=== PATIENT | female | born 1945 | race Caucasian/White ===

== ENCOUNTER → 2016-08-05 | Outpatient (CLI) | payer MEDICARE ==
--- NOTE | 2016-08-05 18:37 | WWHP ---
DATE OF SERVICE: 08/05/2016. CHIEF COMPLAINT: The patient is here for her routine gynecologic exam and mammogram. HPI: This is a 71-year-old G2, P2 with an LMP of 1999. The patient is without gynecologic complaints and she denies any postmenopausal bleeding. PAST MEDICAL HISTORY: Chronic hypertension, osteopenia, arthritis of the knee. MEDICATIONS: 1. Zestril 10 mg daily. 2. Aleve p.r.n. 3. Benadryl p.r.n. ALLERGIES: No known drug allergies. PAST SURGICAL HISTORY: D&C 1997 and colonoscopy in 2010. 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 SOCIAL HISTORY: She denies tobacco and drug use and has 2 to 3 alcoholic drinks per month. She has been since 1990 and watches some of her great grandchildren. She is retired. FAMILY HISTORY: Unremarkable but is limited, since she was adopted. REVIEW OF SYSTEMS: Weight has been stable. She denies respiratory, cardiac, or GI problems. She denies maltreatment or falling. : She denies any significant urinary leakage issues. PHYSICAL EXAM: Blood pressure 165/92. Height 5 feet 4 inches. Weight 175 pounds. Temperature 97.2, pulse 90. This a well-developed, well-nourished white female who is alert and oriented x3 in no acute distress. HEENT is within normal limits. NECK: Supple without mass or thyromegaly. CHEST AND LUNGS: Clear to auscultation. HEART: Regular rate and rhythm. Breasts are without mass or discharge. Axillary exam is negative for adenopathy. BACK: Negative for CVA tenderness. ABDOMEN: Soft, nontender, without palpable masses. PELVIC EXAM: External genitalia reveals mild to moderate atrophy without lesions. Cervix and vagina reveal mild to moderate atrophy without lesions. There is no evidence of prolapse. The uterus is midposition, nongravid size and nontender. There are no palpable adnexal masses or tenderness. Rectovaginal exam is negative for mass or tenderness and is negative for occult blood. EXTREMITIES: Nontender. SKIN: She has multiple moles, some consistent with seborrheic keratosis. IMPRESSION: 1. A 71-year-old menopausal female with normal gynecologic exam. 2. History of osteopenia. 3. Elevated blood pressure with history of chronic hypertension. PLAN: 1. Pap smear was deferred, since she had a normal one last year. 2. Self-breast examination was discussed. 3. Mammogram will be done today. 4. I have recommended that she take her blood pressure on a regular basis and follow up with her primary care advocate for her elevated blood pressures. 5. I have recommended the flu shots in the fall. 6. Osteoporosis prevention was discussed. We will plan on repeating bone density testing in 1 to 2 years. 7. I have recommended that she consider seeing a trimming operator for her multiple moles, including the areas of seborrheic keratosis for regular skin examination. 8. She will return in one year.
--- NOTE | 2016-08-07 12:00 | MM ---
Reason for exam: screening (asymptomatic). Last mammogram was performed 1 year ago. History: Patient is postmenopausal. Physical Findings: A clinical breast exam by your physician is recommended on an annual basis and results should be correlated with mammographic findings. MG 3D Screening Mammo W/Cad Bilateral CC and MLO view(s) were taken. Prior study comparison: July 30, 2015, bilateral MG 3d screening mammo w/cad. July 27, 2014, bilateral MG screening mammo w CAD. July 26, 2013, bilateral digital screening mammo w/CAD. The breast tissue is heterogeneously dense. This may lower the sensitivity of mammography. Multiple moles redemonstrated on the left breast. No significant changes when compared with prior studies. ASSESSMENT: Negative, BI-RAD 1 RECOMMENDATION: Routine screening mammogram of both breasts in 1 year.
== END | disposition home or self-care (01) ==
LOC: WWCWWP 11:06
PROVIDERS: ATTEND Obstetrics & Gynecology
DX: Z12.31 Encounter for screening mammogram for malignant neoplasm of breast (principal)
CPT/HCPCS: 77063; G0202

== ENCOUNTER → 2017-09-22 | Outpatient (CLI) | payer MEDICARE ==
[2017-09-22 09:55] VITALS: BP 154/95; PULSE 77; TEMP 97.4; BMI 31.6
--- NOTE | 2017-09-22 10:23 | P.HPOB ---
History of Present Illness H&P Date: 09/22/17 Chief Complaint: The patient is here for her routine gynecologic exam and mammogram. This is a 72-year-old with an LMP of 1999. The patient is without gynecologic complaints and denies any postmenopausal bleeding. Review of Systems She has gained 9 pounds over the last year. She denies respiratory, cardiac and G.I. problems. She denies maltreatment or problems with falling. : she denies any significant problems with urinary leakage. Past Medical History Past Medical History: Hypertension Additional Past Medical History / Comment(s): Osteopenia and arthritis of the knee. 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 History of Any Multi-Drug Resistant Organisms: None Reported Past Surgical History: No Surgical Hx Reported Additional Past Surgical History / Comment(s): D&C, colonoscopy 2010. Past Psychological History: No Psychological Hx Reported Smoking Status: Never smoker Past Alcohol Use History: Rare (0-1 per month) Past Drug Use History: None Reported Additional History: She has been since 1990 and watches some of her 10 great grandchildren. She is retired. - Past Family History Mother Family Medical History: No Reported History Additional Family Medical History / Comment(s): Family history is very limited since she was adopted. Medications and Allergies Home Medications Medication Instructions Recorded Confirmed Type Lisinopril [Zestril] 10 mg PO BID 09/07/14 09/07/14 History Cetirizine HCl [Zyrtec] mg PO DAILY 09/22/17 History Docusate [Colace] mg PO HS 09/22/17 History Fluticasone Nasal [place] [Flonase spr NASAL PRN 09/22/17 History Nasal [place]] Allergies Allergy/AdvReac Type Severity Reaction Status Date / Time No Known Allergies Allergy Verified 09/07/14 10:56 Exam - Vital Signs Vital signs: Vital Signs Temp Pulse BP 09/22/17 09:51 97.4 F L 77 154/95 Intake and Output 09/21/17 09/22/17 09/22/17 22:59 06:59 14:59 Other: Weight 83.461 kg Height 5'4", BMI 31.6. This is a well-developed well-nourished white female who is alert and oriented times 3 in no acute distress. HEENT: Within normal limits. NECK: Supple without mass or thyromegaly. CHEST AND LUNGS: Clear to auscultation. HEART: Regular rate and rhythm. BREASTS: Are without mass or discharge. There are areas of seborrheic keratosis at the lateral aspect of the left breast which she states she has had for many years and are unchanged for the patient. The largest area measures approximately 2.5 by 3 cm. AXILLARY EXAM: Negative for adenopathy. BACK: Negative for CVA tenderness. ABDOMEN: Soft, nontender, without palpable masses. PELVIC EXAM: Normal external genitalia with mild atrophy. Cervix and vagina appear normal wild atrophy. There is no unusual discharge. There is no evidence of prolapse. The uterus is midposition, nongravid size and nontender. There are no palpable adnexal masses or tenderness. RECTAL EXAM: rectovaginal exam is negative for mass or tenderness and is negative for occult blood. EXTREMITIES: Nontender. IMPRESSION: 1. 72-year-old menopausal female with normal gynecologic exam. 2. History of osteopenia. PLAN: 1. Pap smear was performed. 2. Self breast awareness was discussed. 3. Screening mammogram will be done today. 4. osteoporosis prevention was discussed. Repeat bone density test was recommended for next year. 5. She will return in one year.
--- NOTE | 2017-09-24 10:15 | MM ---
Reason for exam: screening (asymptomatic). Last mammogram was performed 1 year and 2 months ago. History: Patient is postmenopausal. Physical Findings: A clinical breast exam by your physician is recommended on an annual basis and results should be correlated with mammographic findings. MG 3D Screening Mammo W/Cad Bilateral CC and MLO view(s) were taken. Prior study comparison: August 05, 2016, bilateral MG 3d screening mammo w/cad. July 30, 2015, bilateral MG 3d screening mammo w/cad. The breast tissue is heterogeneously dense. This may lower the sensitivity of mammography. No suspicious abnormality. No significant changes when compared with prior studies. ASSESSMENT: Negative, BI-RAD 1 RECOMMENDATION: Routine screening mammogram of both breasts in 1 year.
== END | disposition home or self-care (01) ==
LOC: WWCWWP 09:06
PROVIDERS: ATTEND Obstetrics & Gynecology
DX: Z12.31 Encounter for screening mammogram for malignant neoplasm of breast (principal)
CPT/HCPCS: 77063; 77067

== ENCOUNTER 2018-09-05 11:49 | Emergency (ER) | payer MEDICARE, OTHER ==
[2018-09-05 11:58] VITALS: PULSE 89; RESP 18; TEMP 97.9
--- NOTE | 2018-09-05 13:07 | ED ---
General Adult HPI - General Chief complaint: Skin/Abscess/Foreign Body Stated complaint: Poison Gini rash/chemical burn Time Seen by Provider: 09/05/18 12:53 Source: patient, RN notes reviewed, old records reviewed Mode of arrival: ambulatory Limitations: no limitations - History of Present Illness Initial comments: 73-year-old female presents for reevaluation of left wrist poison gini. Approximately one week ago the patient was clearing out some brush, she did have gloves on she states that there was known poison gini and she had poison gini brushed against the palmar surface of her distal left wrist. She had been treating this with Silvadene. She did have an accidental application of capsaicin cream with subsequent increased erythema and pain. She was seen at urgent care given steroid shot and instructed to continue Silvadene. She is presenting today for reevaluation. She's had some improvement in the erythema. There continues to be some yellow blistering and drainage. No fever chills. No other complaints. - Related Data Home Medications Medication Instructions Recorded Confirmed Lisinopril [Zestril] 10 mg PO BID 09/07/14 09/07/14 Cetirizine HCl [Zyrtec] mg PO DAILY 09/22/17 Docusate [Colace] mg PO HS 09/22/17 Fluticasone Nasal [place] [Flonase spr NASAL PRN 09/22/17 Nasal [place]] Previous Rx's Medication Instructions Recorded methylPREDNISolone Dose Pack 4 mg PO DIRECTED #21 package 09/05/18 [Medrol Dose Pack] Allergies Allergy/AdvReac Type Severity Reaction Status Date / Time No Known Allergies Allergy Verified 09/05/18 11:54 Review of Systems ROS Statement: Those systems with pertinent positive or pertinent negative responses have been documented in the HPI. ROS Other: All systems not noted in ROS Statement are negative. Past Medical History Past Medical History: Hypertension Additional Past Medical History / Comment(s): Osteopenia and arthritis of the neil velazquez. 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 History of Any Multi-Drug Resistant Organisms: None Reported Past Surgical History: No Surgical Hx Reported Additional Past Surgical History / Comment(s): D&C, colonoscopy 2010. Past Psychological History: No Psychological Hx Reported Smoking Status: Never smoker Past Alcohol Use History: Rare Past Drug Use History: None Reported - Past Family History Mother Family Medical History: No Reported History Additional Family Medical History / Comment(s): Family history is very limited since she was adopted. General Exam Limitations: no limitations General appearance: alert, in no apparent distress Head exam: Present: atraumatic, normocephalic Eye exam: Present: normal appearance, PERRL ENT exam: Present: normal exam Neck exam: Present: normal inspection Respiratory exam: Present: normal lung sounds bilaterally. Absent: respiratory distress Cardiovascular Exam: Present: regular rate, normal rhythm GI/Abdominal exam: Present: soft. Absent: distended, tenderness, guarding Skin exam: Present: vesicles (Erythema, vesicles on the palmar surface of the distal left wrist. Measuring approximately 9 cm x 5 cm. No signs of secondary infection), other Course Vital Signs 09/05/18 11:54 Temperature 97.9 F Pulse Rate 89 Respiratory 18 Rate Blood Pressure 195/92 O2 Sat by Pulse 99 Oximetry Medical Decision Making - Medical Decision Making 73-year-old female presenting for reevaluation of poison gini. Will continue to apply antibiotic dressing for secondary infection. Patient is managing this poison gini rash at home with symptomatic treatment including topical steroids, oral antihistamines, and washing twice daily. She will continue this treatment she will be prescribed an oral steroid. Disposition Clinical Impression: Contact dermatitis, Poison gini dermatitis Disposition: HOME SELF-CARE Condition: Good Instructions (If sedation given, give patient instructions): Poison Gini (ED) Prescriptions: methylPREDNISolone Dose Pack [Medrol Dose Pack] 4 mg PO DIRECTED #21 package Is patient prescribed a controlled substance at d/c from ED?: No Referrals: Hilario Vazquez MD [Primary Care Provider] - 1-2 days Time of Disposition: 13:07
[2018-09-05 13:32] VITALS: BP 156/95
== END 2018-09-05 13:33 | disposition home or self-care (01) ==
LOC: EC 11:49
DX: L23.7 Allergic contact dermatitis due to plants, except food (principal); I10 Essential (primary) hypertension; Z79.899 Other long term (current) drug therapy
CPT/HCPCS: 99283

== ENCOUNTER → 2018-11-09 | Outpatient (CLI) | payer MEDICARE, OTHER ==
[2018-11-09 11:39] VITALS: BP 153/88; PULSE 100; RESP 18; TEMP 98.2; BMI 32.2
--- NOTE | 2018-11-09 12:21 | P.HPOB ---
History of Present Illness H&P Date: 11/09/18 Chief Complaint: The patient is here for her routine gynecologic exam and ma mmogram. This is a 73 year old with an LMP of 1999. The patient is without gynecologic complaints and denies any postmenopausal bleeding. She is sexually active. Review of Systems She has gained about 5 pounds over the last year. She denies respiratory, cardiac and G.I. problems. She denies maltreatment or problems with falling. : she denies any significant problems with urinary leakage. Past Medical History Past Medical History: Hypertension Additional Past Medical History / Comment(s): Osteopenia. 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 She did use HRT around at the time of her menopausal change. History of Any Multi-Drug Resistant Organisms: None Reported Past Surgical History: No Surgical Hx Reported Additional Past Surgical History / Comment(s): D&C, colonoscopy 2010. Past Psychological History: No Psychological Hx Reported Smoking Status: Never smoker Past Alcohol Use History: Rare Past Drug Use History: None Reported Additional History: She has been since 1990 and is sexually active. She has 10 great grandchildren and watches some of them. She is retired. - Past Family History Mother Family Medical History: No Reported History Additional Family Medical History / Comment(s): Family history is very limited since she was adopted. Medications and Allergies Home Medications Medication Instructions Recorded Confirmed Type Lisinopril [Zestril] 10 mg PO BID 09/07/14 11/09/18 History Cetirizine HCl [Zyrtec] 10 mg PO DAILY 09/22/17 11/09/18 History Docusate [Colace] 100 mg PO HS 09/22/17 11/09/18 History Fluticasone Nasal [place] [Flonase 1 spr NASAL DAILY PRN 09/22/17 11/09/18 History Nasal [place]] Allergies Allergy/AdvReac Type Severity Reaction Status Date / Time acyclovir [From Zovirax] Allergy Rash/Hives Unverified 11/09/18 11:41 Exam Vital Signs Temp Pulse Resp BP Pulse Ox 11/09/18 11:32 98.2 F 100 18 153/88 100 Intake and Output 11/08/18 11/09/18 11/09/18 22:59 06:59 14:59 Other: Weight 85.275 kg Height 5'4", weight 188 pounds, BMI 32.3. This is a well-developed well-nourished white female who is alert and oriented times 3 in no acute distress. HEENT: Within normal limits. NECK: Supple without mass or thyromegaly. CHEST AND LUNGS: Clear to auscultation. HEART: Regular rate and rhythm. BREASTS: Are without mass or discharge. AXILLARY EXAM: Negative for adenopathy. BACK: Negative for CVA tenderness. ABDOMEN: Soft, nontender, without palpable masses. PELVIC EXAM: Normal external genitalia with mild atrophy. Cervix and vagina appear normal with mild atrophy. There is no unusual discharge. There is no evidence of prolapse. The uterus is midposition, nongravid size and nontender. There are no palpable adnexal masses or tenderness. RECTAL EXAM: rectovaginal exam is negative for mass or tenderness and is negative for occult blood. EXTREMITIES: Nontender. IMPRESSION: 1. 73-year-old menopausal female with normal gynecologic exam. 2. History of osteopenia. PLAN: 1. Pap smears have been discontinued. She is greater than 65 years of age and has had adequate screening with no history of cervical dysplasia. 2. Self breast awareness was discussed with the patient. 3. Screening mammogram will be done today. 4. Osteoporosis prevention was discussed. I have stressed the importance of adequate calcium, vitamin D and regular exercise. Recommended amounts of calcium and vitamin D were also discussed. Bone density testing will be done to day. 5. She has not gotten flu shots during the past 2 years. I recommended that she reconsider this and we have discussed reasons why this is important. 6. The patient was advised to return in 1-2 years for her well woman examination.
--- NOTE | 2018-11-09 15:08 | BD ---
EXAMINATION TYPE: Axial Bone Density DATE OF EXAM: 11/09/2018 COMPARISON: NONE CLINICAL HISTORY: Z 78.0 Height: 5 FT 4 IN Weight: 188 FRAX RISK QUESTIONS: RISK FACTORS HISTORY OF: Active: YES Postmenopausal woman: AGE 50/51 Take estrogen and/or progesterone medications: TOOK FOR ABOUT TWO YEARS NO LONGER MEDICATIONS: Additional Medications: ZESTERIL FOR BLOOD PRESSURE Additional History: EXAM MEASUREMENTS: Bone mineral densitometry was performed using the [employer] System. Bone mineral density as measured about the Lumbar spine is: ----- L1-L4(G/cm2): 1.130 T Score Values are as follows: ----- L2: -0.5 ----- L3: -0.4 ----- L4: -0.7 ----- L1-L4: -0.4 Bone mineral density has: INCREASED 1.3 % since study of: 2015 Bone mineral density about the R hip (g/cm2): 0.826 Bone mineral density about the L hip (g/cm2): 0.810 T Score values are as follows: -----R Neck: -1.5 -----L Neck: -1.6 -----R Total: -0.9 -----L Total: -1.0 Bone mineral density has: INCREASED 0.3 % since study of: 2015 IMPRESSION: Osteopenia (T Score between -2.5 and -1). There is slightly increased risk of fracture and the patient may be considered for treatment. Re-Screen 2-5 years. NOTE: T-SCORE=SD OF THE YOUNG ADULT MEAN.
--- NOTE | 2018-11-10 15:21 | MM ---
Reason for exam: screening (asymptomatic). Last mammogram was performed 1 year and 2 months ago. History: Patient is postmenopausal. Physical Findings: A clinical breast exam by your physician is recommended on an annual basis and results should be correlated with mammographic findings. MG 3D Screening Mammo W/Cad Bilateral CC and MLO view(s) were taken. Prior study comparison: September 22, 2017, bilateral MG 3d screening mammo w/cad. August 05, 2016, bilateral MG 3d screening mammo w/cad. The breast tissue is heterogeneously dense. This may lower the sensitivity of mammography. No significant changes when compared with prior studies. ASSESSMENT: Benign, BI-RAD 2 RECOMMENDATION: Routine screening mammogram of both breasts in 1 year.
--- NOTE | 2018-11-16 10:15 | P.PN ---
Progress Note - Text Progress Note Date: 11/16/18 OUTPATIENT FOLLOW-UP NOTE TEST(S)/RESULTS: test results from 11/09/2018 include bone density testing showing stable osteopenia and benign mammogram. METHOD OF NOTIFICATION: a message with these results was left on the patient's voicemail. PATIENT COMMENTS: DIAGNOSIS: benign mammogram and stable osteopenia. DISCUSSION: I have also stressed the importance of continuing to get adequate calcium, vitamin D, and regular exercise. PLAN: repeat bone density testing in 2 to 3 years. The patient was advised to return in 1-2 years for her well woman examination.
== END | disposition home or self-care (01) ==
LOC: WWCWWP 11:12
PROVIDERS: ATTEND Obstetrics & Gynecology
DX: Z12.31 Encounter for screening mammogram for malignant neoplasm of breast (principal); M85.80 Other specified disorders of bone density and structure, unspecified site; Z78.0 Asymptomatic menopausal state
CPT/HCPCS: 77063; 77067; 77080

== ENCOUNTER → 2020-03-18 | Outpatient (CLI) | payer MEDICARE, OTHER | END | disposition home or self-care (01) | LOC: LABPAT 10:11 | PROVIDERS: ATTEND Student in an Organized Health Care Education/Training Program | DX: U07.1 COVID-19 (principal) ==

== ENCOUNTER 2020-03-22 13:54 | Day surgery (SDC) | payer MEDICARE, OTHER ==
[2020-03-20 14:49] VITALS: BMI 29.2
[~2020-03-22 13:54] MED LIST: LACTATED RINGERS 1,000 ML IV SCH
[2020-03-22 14:14] VITALS: TEMP 97.8
[2020-03-22] MEDS ORDERED: LIDOCAINE 1% (10MG/ML) FOR IV START INTRADERMA ONE (14:15)
[2020-03-22] MEDS ORDERED: LACTATED RINGERS 1,000 ML IV ONE (14:15)
[2020-03-22] MEDS ORDERED: LIDOCAINE 1% INJ 10MG/ML (20 ML MDV) ONE (17:49)
[2020-03-22] MEDS ORDERED: PROPOFOL 10 MG/ML 20 ML VIAL IV ONE (17:49)
[2020-03-22 18:20] VITALS: RESP 17
[2020-03-22 18:30] VITALS: BP 107/70; PULSE 77
--- NOTE | 2020-03-22 19:38 | P.OP ---
Date of Procedure: 03/22/20 Preoperative Diagnosis: GERD, screening Postoperative Diagnosis: Esophagitis, ascending colon polyp Procedure(s) Performed: EGD with biopsy and colonoacopy with hot snare polypectomy Anesthesia: MAC Surgeon: Peter Mchugh Estimated Blood Loss (ml): 0 Condition: stable Disposition: same day Description of Procedure: Patient brought to endo, underwent sedation, scope passed from mouth to stomach, first and second portion of duodenum were examened and chronic inflammation noted, biopsy taken. Withdrawn to stomach and antral biopsy taken to rule out h pylori. Retroflexed to visualize all serna of stomach no abdnormalities noted. No significant hiatal hernia noted. Withdrawn to GE junction where esophagitis was noted. Multiple biopsies taken to rule out barretts. Scope withdrawn through esophagus no other abdnormalities noted. Rectal exam performed no gross abdnormalities noted, scope passed fro rectum to cecum with ease and slowly withdrawn visualizing all serna of colon on the way out. there was one pedunctulated small polyp in the ascending colon removed via hot snare polypectomy. There were also several small inflamatory lesions in the rectum and cold biopsy was taken of these. No other abdnormalities seen. Patient tolerated procedure well. Continue omeprazole follow up biopsies and repeat colonoscopy in 5 years Plan - Discharge Summary Discharge Rx Participant: No New Discharge Prescriptions: No Action lisinopriL [Zestril] 10 mg PO BID Fluticasone Nasal [place] [Flonase Nasal [place]] 1 spr NASAL DAILY PRN PRN Reason: Allergy Symptoms Docusate [Colace] 100 mg PO HS Loratadine [Claritin] 10 mg PO DAILY Omeprazole [PriLOSEC] 20 mg PO AC-BRKFST Montelukast [Singulair] 10 mg PO HS Multivit-Min/FA/Lycopen/Lutein [Centrum Silver Tablet] 1 each PO DAILY Discharge Medication List lisinopriL [Zestril] 10 mg PO BID 09/07/14 [History] Docusate [Colace] 100 mg PO HS 09/22/17 [History] Fluticasone Nasal [place] [Flonase Nasal [place]] 1 spr NASAL DAILY PRN 09/22/17 [H istory] Loratadine [Claritin] 10 mg PO DAILY 03/20/20 [History] Montelukast [Singulair] 10 mg PO HS 03/20/20 [History] Multivit-Min/FA/Lycopen/Lutein [Centrum Silver Tablet] 1 each PO DAILY 03/20/20 [History] Omeprazole [PriLOSEC] 20 mg PO AC-BRKFST 03/20/20 [History] Follow up Appointment(s)/Referral(s): Peter Mchugh DO [Doctor of Osteopathic Medicine] - As Needed Patient Instructions/Handouts: *Surgery [facility] - (Anesthesia) Endoscopy Discharge Instructions, Colonoscopy (DC), Upper Endoscopy (DC) Activity/Diet/Wound Care/Special Instructions: REST TODAY, ENCOURAGE FLUIDS AT HOME Discharge Disposition: HOME SELF-CARE
== END 2020-03-22 18:47 | disposition home or self-care (01) ==
LOC: ORWHC2ENDO 13:54
PROVIDERS: ATTEND Student in an Organized Health Care Education/Training Program
DX: Z12.11 Encounter for screening for malignant neoplasm of colon (principal); D12.2 Benign neoplasm of ascending colon; K63.5 Polyp of colon; K62.89 Other specified diseases of anus and rectum; K21.00 Gastro-esophageal reflux disease with esophagitis, without bleeding; K29.80 Duodenitis without bleeding; K64.9 Unspecified hemorrhoids; E78.5 Hyperlipidemia, unspecified; M81.0 Age-related osteoporosis without current pathological fracture; I10 Essential (primary) hypertension; Z88.8 Allergy status to other drugs, medicaments and biological substances; Z79.899 Other long term (current) drug therapy
CPT/HCPCS: 45385; 45380; 43239; 88305; J2001; J2704

== ENCOUNTER → 2020-09-17 | Outpatient (CLI) | payer MEDICARE, OTHER ==
[2020-09-17 09:32] VITALS: BP 150/73; PULSE 79; RESP 16; TEMP 98
--- NOTE | 2020-09-17 10:10 | P.HPOB ---
History of Present Illness H&P Date: 09/17/20 Chief Complaint: The patient is here for her routine gynecologic exam and ma mmogram. This is a 75-year-old with an LMP of 1999. The patient is without gynecologic complaints. She is infrequently sexually active. Review of Systems She has lost about 28 pounds over the past 2 years. She states this has been because of some digestive issues related to the gastric reflux. She denies respiratory, cardiac and G.I. problems. She denies maltreatment or problems with falling. : she denies any significant problems with urinary leakage. Past Medical History Past Medical History: GERD/Reflux, Hypertension Additional Past Medical History / Comment(s): Osteopenia. 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 She did use HRT around at the time of her menopausal change. History of Any Multi-Drug Resistant Organisms: None Reported Past Surgical History: No Surgical Hx Reported Additional Past Surgical History / Comment(s): D&C, colonoscopy 2019 (next after 7yr), upper endoscopy 2019. Past Anesthesia/Blood Transfusion Reactions: No Reported Reaction, Motion Sickness Past Psychological History: No Psychological Hx Reported Smoking Status: Never smoker Past Alcohol Use History: Rare (Some years 0 drinks) Past Drug Use History: None Reported Additional History: She has been since 1990 and is infrequently sexually active. She has 10 great-grandchildren and watches some of them. She is retired. - Past Family History Mother Family Medical History: No Reported History Additional Family Medical History / Comment(s): Family history is very limited since she was adopted. Medications and Allergies Home Medications Medication Instructions Recorded Confirmed Type lisinopriL [Zestril] 10 mg PO BID 09/07/14 09/17/20 History Docusate [Colace] 100 mg PO HS 09/22/17 09/17/20 History Loratadine [Claritin] 10 mg PO DAILY 03/20/20 09/17/20 History Montelukast [Singulair] 10 mg PO HS 03/20/20 09/17/20 History Omeprazole [PriLOSEC] 20 mg PO AC-BRKFST 03/20/20 09/17/20 History Allergies Allergy/AdvReac Type Severity Reaction Status Date / Time acyclovir [From Zovirax] Allergy Rash/Hives Unverified 09/17/20 09:23 Exam Vital Signs Temp Pulse Resp BP Pulse Ox 09/17/20 09:25 98.0 F 79 16 150/73 98 Intake and Output 09/16/20 09/17/20 09/17/20 22:59 06:59 14:59 Other: Weight 72.575 kg Height 5 feet 3-1/2 inches, weight 160 pounds, BMI 27.9. This is a well-developed well-nourished white female who is alert and oriented times 3 in no acute distress. HEENT: Within normal limits. NECK: Supple without mass or thyromegaly. CHEST AND LUNGS: Clear to auscultation. HEART: Regular rate and rhythm. BREASTS: Are without mass or discharge. There is a benign-appearing mole measuring 5 x 3 mm on the left lateral breast. She states it has been there for many years without change. AXILLARY EXAM: Negative for adenopathy. BACK: Negative for CVA tenderness. ABDOMEN: Soft, nontender, without palpable masses. PELVIC EXAM: Normal external genitalia with mild atrophy. Cervix and vagina appear normal with mild atrophy. There is no unusual discharge. There is no ev idence of prolapse. The uterus is midposition, nongravid size and nontender. There are no palpable adnexal masses or tenderness. RECTAL EXAM: Rectovaginal exam is negative for mass or tenderness and is negative for occult blood. EXTREMITIES: Nontender. IMPRESSION: 1. 75-year-old menopausal female with normal gynecologic exam. 2. History of osteopenia PLAN: 1. Pap smears have been discontinued. 2. Self breast awareness was discussed with the patient. 3. Screening mammogram will be done today. 4. Osteoporosis prevention was discussed. I have stressed the importance of adequate calcium, vitamin D and regular exercise. Recommended amounts of calcium and vitamin D were also discussed. I have recommended a bone density test after October of this year. The order slip was given to the patient for this. 5. She did complete her Covid vaccination series and did receive a flu shot last fall. 6. She was advised to return in one year for her annual well woman exam.
--- NOTE | 2020-09-18 13:41 | MM ---
Reason for exam: screening (asymptomatic). Last mammogram was performed 1 year and 10 months ago. History: Patient is postmenopausal. Took other hormone beginning at age 51. Physical Findings: A clinical breast exam by your physician is recommended on an annual basis and results should be correlated with mammographic findings. MG 3D Screening Mammo W/Cad Bilateral CC and MLO view(s) were taken. Prior study comparison: November 09, 2018, bilateral MG 3d screening mammo w/cad. September 22, 2017, bilateral MG 3d screening mammo w/cad. The breast tissue is heterogeneously dense. This may lower the sensitivity of mammography. There are benign appearing round calcifications bilaterally. There is no discrete abnormality. ASSESSMENT: Benign, BI-RAD 2 RECOMMENDATION: Routine screening mammogram of both breasts in 1 year.
== END ==
LOC: WWCWWP 09:10
PROVIDERS: ATTEND Obstetrics & Gynecology
DX: Z12.31 Encounter for screening mammogram for malignant neoplasm of breast (principal); Z01.419 Encounter for gynecological examination (general) (routine) without abnormal findings; K21.9 Gastro-esophageal reflux disease without esophagitis; I10 Essential (primary) hypertension; Z87.39 Personal history of other diseases of the musculoskeletal system and connective tissue; Z79.899 Other long term (current) drug therapy; Z88.8 Allergy status to other drugs, medicaments and biological substances
CPT/HCPCS: 77063; 77067

== ENCOUNTER → 2021-12-19 | Outpatient (CLI) | payer MEDICARE, OTHER ==
[2021-12-19 10:16] LABS: African American GFR (CKD) >90 (>60 ml/min/1.73 sqM); Blood Urea Nitrogen 19 mg/dL (7-17); Non-African American GFR(CKD) 86 (>60 ml/min/1.73 sqM)
--- NOTE | 2021-12-19 15:27 | CT ---
EXAMINATION TYPE: CT urogram wo/w con DATE OF EXAM: 12/19/2021 COMPARISON: None HISTORY: 76 year-old female 3 1.0, Gross hematuria TECHNIQUE: Contiguous axial scanning of the abdomen and pelvis performed without and with IV Contrast , patient injected with 100 mL of Isovue 370. Delayed images through the kidneys and bladder were obt ained. Coronal/sagittal reconstructions performed. 3-D reconstructions generated on a dedicated [employer] workstation. CT DLP: 956.6 mGycm Automated exposure control for dose reduction was used. FINDINGS: Heart normal size pericardial effusion. Lung bases clear without pleural effusion. Small hiatal hernia. 1.1 cm cyst lateral right kidney. Possible porcelain gallbladder versus numerous underlying stones. There is some soft tissue thickenin g noted at the fundus of the gallbladder measuring up to 2.5 cm. Surgical evaluation recommended. Non calcified gallstones are possible as is a mass. No abnormal gallbladder distention. Portal venous sys tem is patent. No biliary ductal dilatation. Adrenal glands, spleen, pancreas within normal limits. Large 7.4 cm exophytic cyst lower pole left kidney. Additional tiny 8 mm cortical cyst on the left. Kidneys show no nephrolithiasis. Bilateral extrarenal pelves are noted. No suspicious renal mass. The distal third aspect of one of th e ureters is not opacified in either joints with the other ureter continues not opacified. No dilated small bowel, free fluid, or free air. Normal appendix. Mild overall stool burden. Bladder is urine distended but shows abnormal mural based soft tissue mass up to 4.8 cm thick but ext ending along the right lateral half of the bladder filling the right bladder floor and extending johnnie g the posterior wall to the dome of the bladder. Overall extent demonstrated well on sagittal series 9 image 94. The mass on series 4 axial image 109 results in distortion of the bladder wall and outwar d protuberance. Additional small mural nodules are present along the posterior half of the left bladder wall measurin g up to 7 mm Tiny pelvic fluid was. Uterus anteverted. Left ovary visualized. Right ovary not clearly delineated. No abnormal fluid collection in the pelvis or pelvic lymphadenopathy. Degenerative dextroconvex curvature centered along the upper lumbar spine. No osseous destructive pro cess seen. IMPRESSION: 1. EXTENSIVE UROTHELIAL NEOPLASM ALONG THE RIGHT HALF OF THE BLADDER EXTENDING FROM THE FLOOR UP TO T HE DOME OF THE BLADDER MEASURING UP TO 4.8 CM THICK. MULTIPLE SMALLER NEOPLASTIC NODULES ARE PRESENT ALONG THE LEFT POSTERIOR HALF OF THE BLADDER WALL MEASURING UP TO 7 MM. 2. DUPLEX LEFT RENAL COLLECTING SYSTEM. 2 URETERS COURSE INTO THE PELVIS. THE DISTAL THIRD ASPECT OF ONE OF THE LEFT-SIDED URETERS IS NOT SEEN AND COULD EITHER BE NONOPACIFIED OR COULD HAVE JOINED THE O THER URETER. 3. OTHERWISE, NO ADDITIONAL LESION SEEN ALONG EITHER OPACIFIED URETER. THERE IS A LARGE EXOPHYTIC 7.4 CM LEFT LOWER POLE RENAL CYST. 4. POSSIBLE PORCELAIN GALLBLADDER. SOME SOFT TISSUE THICKENING AT THE FUNDUS OF THE GALLBLADDER MEASU RES 2.5 CM AND COULD REPRESENT NONCALCIFIED GALLSTONES OR A GALLBLADDER MASS. RECOMMEND SURGICAL EVAL UATION.
== END | disposition home or self-care (01) ==
LOC: RADCTMAIN 09:18
PROVIDERS: ATTEND Urology
DX: C67.9 Malignant neoplasm of bladder, unspecified (principal); N28.1 Cyst of kidney, acquired; K82.8 Other specified diseases of gallbladder
CPT/HCPCS: 82565; 84520; 74178; 36415; 74400; Q9967

== ENCOUNTER → 2022-01-12 | Outpatient (CLI) | payer MEDICARE, OTHER ==
[2022-01-12 17:54] LABS: Basophils # (A) 0.03 X 10*3/uL (0.00-0.10); Basophils % (A) 0.4 %; Eosinophils # (A) 0.05 X 10*3/uL (0.04-0.35); Eosinophils % (A) 0.7 %; HCT 46.8 % (37.2-46.3); HGB 15.4 g/dL (12.0-15.0); Immature Grans, Automated 0.4 %; Lymphocytes # (A) 1.42 X 10*3/uL (0.90-5.00); Lymphocytes % (A) 18.8 %; MCH 30.3 pg (27.0-32.0); MCHC 32.9 g/dL (32.0-37.0); MCV 91.9 fL (80.0-97.0); Mean Platelet Volume 10.7 fL (9.5-12.2); Monocytes # (A) 0.46 X 10*3/uL (0.20-1.00); Monocytes % (A) 6.1 %; NRBC Per 100 WBC 0 /100 WBCS (0.0-0.0); Neutrophils # (A) 5.57 X 10*3/uL (1.80-7.70); Neutrophils % (A) 73.6 %; Platelet Count 226 X 10*3/uL (140-440); RBC 5.09 X 10*6/uL (4.10-5.20); RDW 12.3 % (11.5-14.5); WBC 7.56 X 10*3/uL (4.50-10.00)
[2022-01-12 18:04] LABS: African American GFR (CKD) 86.2 (60.0-200.0); Albumin 4.6 g/dL (3.8-4.9); Albumin/Globulin Ratio 1.94 (1.60-3.17); Anion Gap 10.7 mmol/L (10.00-18.00); BUN/Creat Ratio 24.74 Ratio (12.00-20.00); Blood Urea Nitrogen 19.3 mg/dL (9.0-27.0); Calcium 10.3 mg/dL (8.7-10.3); Carbon Dioxide 26.4 mmol/L (20.0-27.5); Globulin 2.4 g/dL (1.6-3.3); Non-African American GFR(CKD) 74.4 (60.0-200.0); Potassium 4.8 mmol/L (3.5-5.5); Total Bilirubin 0.5 mg/dL (0.30-1.20); Total Protein 6.9 g/dL (6.2-8.2)
[2022-01-12 18:31] LABS: Appearance,Urine Cloudy (Clear); Bilirubin,Urine Negative (Negative); Blood,Urine Large (Negative); Color,Urine Yellow (Yellow); Ketones,Urine Negative (Negative); Nitrite,Urine Negative (Negative); Specific Gravity,Urine 1.008 (1.001-1.030); Urobilinogen,Urine 0.2 (0.2,1.0)
[2022-01-12 20:33] LABS: Bacteria,Urine Trace /HPF (None Seen)
== END | disposition home or self-care (01) ==
LOC: LABPAT 11:14
PROVIDERS: ATTEND Urology
DX: Z01.812 Encounter for preprocedural laboratory examination (principal); N20.0 Calculus of kidney; R31.29 Other microscopic hematuria
CPT/HCPCS: 80053; 81001; 85025; 87086

== ENCOUNTER 2022-01-21 08:27 | Day surgery (SDC) | payer MEDICARE, OTHER ==
[2022-01-20 11:47] VITALS: BMI 28.3
--- NOTE | 2022-01-20 20:28 | P.GSHP ---
History of Present Illness H&P Date: 01/20/22 76 yo female with gross hematuria. Ct scan and cystocopy identified a large bladder tumor on the left bladder wall as well as circumferentially around the bladder neck. She comes for a turbt - Constitutional Constitutional: Denies chills, Denies fever - EENT Eyes: denies blurred vision, denies pain Ears, nose, mouth and throat: Denies headache, Denies sore throat - Cardiovascular Cardiovascular: Denies chest pain, Denies shortness of breath - Respiratory Respiratory: Denies cough, Denies 7 - Gastrointestinal Gastrointestinal: Denies abdominal pain, Denies diarrhea, Denies nausea, Denies vomiting - Genitourinary (Female) Genitourinary: Denies dysuria, Denies hematuria - Genitourinary (Male) Genitourinary: Denies dysuria, Denies hematuria - Musculoskeletal Musculoskeletal: Denies myalgias - Integumentary Integumentary: Denies pruritus, Denies rash - Neurological Neurological: Denies numbness, Denies weakness - Psychiatric Psychiatric: Denies anxiety, Denies depression - Endocrine Endocrine: Denies fatigue, Denies weight change Past Medical History Past Medical History: Cancer, Eye Disorder, GERD/Reflux, Hypertension, Skin Disorder Additional Past Medical History / Comment(s): Current bladder cancer. Seasonal allergies. Osteopenia. Ocular hypertension. Rosacea. History of Any Multi-Drug Resistant Organisms: None Reported Past Surgical History: Tubal Ligation Additional Past Surgical History / Comment(s): D&C, colonoscopy, upper endoscopy. Past Anesthesia/Blood Transfusion Reactions: No Reported Reaction, Motion Sickness Additional Past Anesthesia/Blood Transfusion Reaction / Comment(s): Pt adopted, family hx unknown. Past Psychological History: No Psychological Hx Reported Smoking Status: Never smoker Past Alcohol Use History: Rare Additional Past Alcohol Use History / Comment(s): No alcohol in 4-5 years. Past Drug Use History: None Reported - Past Family History Mother History Unknown: Yes Family Medical History: Unable to Obtain Additional Family Medical History / Comment(s): Family history unknown, patient adopted. Medications and Allergies Home Medications Medication Instructions Recorded Confirmed Type lisinopriL [Zestril] 10 mg PO BID 09/07/14 01/20/22 History Montelukast [Singulair] 10 mg PO HS 03/20/20 01/20/22 History Omeprazole [PriLOSEC] 20 mg PO AC-SUPPER 03/20/20 01/20/22 History Doxycycline [Vibramycin] 100 mg PO DAILY 01/20/22 01/20/22 History Hydrocortisone Cream 1 applic TOPICAL HS 01/20/22 01/20/22 History [Hydrocortisone 2.5% Cream] Latanoprost/Pf [Latanoprost 0.005% 1 drop BOTH EYES HS 01/20/22 01/20/22 History Eye Drop] metroNIDAZOLE 0.75% CREAM 1 applic TOPICAL QAM 01/20/22 01/20/22 History [Metrocream 0.75%] Allergies Allergy/AdvReac Type Severity Reaction Status Date / Time No Known Allergies Allergy Verified 01/20/22 11:32 Surgical - Exam - General well developed, well nourished, no distress - Eyes normal ocular movement, no icteric - ENT no hearing loss, no congestion - Neck no masses, trachea midline - Respiratory normal respiratory effort, clear to auscultation - Abdomen Abdomen: soft, non tender, no guarding, no rigid, no rebound - Integumentary no rash, no abnormal pigmentation - Neurologic no disoriented, no combative - Psychiatric oriented to time, oriented to person, oriented to place, speech is normal, memory intact Results - Imaging CT scan - abdomen: report reviewed, image reviewed CT scan - pelvis: report reviewed, image reviewed Assessment and Plan Assessment: Impression: bladder cancer, large Plan: turbt large
[~2022-01-21 08:27] MED LIST changes: +HYDROmorphone 0.5 MG/0.5 ML SYRINGE IVP PRN; -LACTATED RINGERS 1,000 ML IV SCH; +LIDOCAINE 1% (10MG/ML) FOR IV START INTRADERMA PRN; +MIDAZOLAM 2 MG/2 ML VIAL IV PRN
[2022-01-21] MEDS: LACTATED RINGERS 1,000 ML IV SCH ×2 (09:33→10:30)
--- NOTE | 2022-01-21 09:35 | XR ---
KUB HISTORY: Calculus, N 20.0 Frontal KUB correlated to CT 12/19/2021 Linear densities in the right upper quadrant likely corresponding to gallbladder wall calcification a s noted on prior CT consistent with porcelain gallbladder. No evident renal calculus. Overlying bowel gas may obscure detail. Vascular calcifications are present within the pelvis. There is a scoliotic curvature to the spine, degenerative disc changes are present. No evident pneumoperitoneum or bowel o bstruction. IMPRESSION: Possible porcelain gallbladder. Additional findings above.
[2022-01-21] MEDS: ONDANSETRON 4 MG/2 ML VIAL IVP ONE ×3 (09:37→16:38)
[2022-01-21] MEDS: DEXAMETHASONE SOD PHOSPHATE 4 MG/ML 1 ML VIAL IV ONE ×2 (09:37→16:38)
[2022-01-21] MEDS ORDERED: NEOSTIGMINE 1 MG/ML 10 ML VIAL ONE (10:27)
[2022-01-21] MEDS ORDERED: GLYCOPYRROLATE 0.2 MG/ML 2 ML VIAL ONE (10:27)
[2022-01-21] MEDS ORDERED: ePHEDrine 50 MG/ML 1 ML VIAL ONE (10:27)
[2022-01-21] MEDS ORDERED: LIDOCAINE 2% INJ 20 MG/ML (2 ML VIAL) ONE (10:27)
[2022-01-21] MEDS ORDERED: PHENYLEPHRINE-0.9% NACL SYG 1,000 MCG/10 ML SYRINGE ONE (10:27)
[2022-01-21] MEDS ORDERED: fentaNYL (PF) 50 MCG/ML 2 ML AMP ONE (10:27)
[2022-01-21] MEDS ORDERED: ROCURONIUM 10 MG/ML (5 ML VIAL) IV ONE (10:27)
[2022-01-21] MEDS ORDERED: SUCCINYLCHOLINE CHLORIDE 200 MG/10 ML VIAL IV ONE (10:27)
[2022-01-21] MEDS ORDERED: PROPOFOL 10 MG/ML 20 ML VIAL IV ONE (10:27)
[2022-01-21] MEDS ORDERED: LACTATED RINGERS 1,000 ML IV ONE (11:30)
[2022-01-21] MEDS ORDERED: HYDROcodone/APAP 5-325MG 1 EACH TAB PO PRN (13:05)
--- NOTE | 2022-01-21 13:11 | P.OP ---
Date of Procedure: 01/21/22 Preoperative Diagnosis: Bladder tumor large Postoperative Diagnosis: Same Procedure(s) Performed: Cystoscopy, transurethral resection large, incomplete, open cystostomy with removal of remaining tumor and control bleeding, placement of a JOHANN drain Anesthesia: JOSELINE Surgeon: Antony Peters Estimated Blood Loss (ml): 250 Pathology: other (Her tumor) Condition: stable Disposition: PACU Indications for Procedure: The patient is 76. She gross hematuria. Computed tomography scan identified a large tumor in the right lateral wall and posterior bladder wall. This was confirmed endoscopically. She comes for transurethral resection of this tumor there is no upper tract or metastatic disease. Patient brought operating suite given general anesthesia placed lithotomy position. Her drape. I introduced the 25-Nigerien sheath and Foroblique lens into the bladder. With the bipolar resecting loop and the superior loop I began to resect the tumor. The tumor is very extensive and larger than I identified in the office. Extends from across the midline to the left posterior lateral bladder wall all the way up the right posterior lateral wall up to the anterior bladder wall surrounding the complete bladder neck. I removed tumor medial to lateral. It is extremely difficult as the bladder somewhat floppy and the tumor is irregular and large. I resect for almost an hour and I feel that there is still a significant amount of tumor left and I'm concerned that when there is too much tumor remaining 2 I cannot control the bleeding and 3 perhaps her might be some bladder perforation I will therefore opened the patient Discussing with the family that an open cystotomy will be done after sterile prep and drape the midline incision is made. The rectus fascia is opened. Opening the bladder the midline and drain out a bunch of old blood. There is a large amount of tumor in the right anterior bladder wall that is resected with the Bovie. I controlled bleeding with electrocautery and stitches of. I spent another hour cleaning the bladder up and removing any tumor cauterizing it. At the end of the procedure the bladder is closed with 3 layers of 3 and 2-0 Vicryl. A JOHANN drain is brought through a separate stab incision. The anterior rectus fascias closed with #1 Vicryl. The skin is also rosmery the patient awake and returned recovery in good condition Impression TURBT large recently and completed with an open cystotomy. A shunt will be observed in the hospital for the next couple days. The Luke catheter probably stay in the 10 days. Pending the pathology report as to further recommendations. This is been discussed length with the patient. Blood loss about 250 mL.
[2022-01-21] MEDS ORDERED: ONDANSETRON 4 MG/2 ML VIAL IVP ONE (14:52)
[2022-01-21] MEDS: MORPHINE SULFATE 2 MG/ML SYRINGE IV PRN ×2 (16:52→21:37)
[2022-01-21] MEDS ORDERED: METOCLOPRAMIDE 5 MG/ML 2 ML VIAL IVP PRN (17:02)
[2022-01-21] MEDS: PANTOPRAZOLE 40 MG TABLET PO SCH (17:18)
[2022-01-21] MEDS: ONDANSETRON 4 MG/2 ML VIAL IVP PRN (21:20)
[2022-01-21] MEDS: MONTELUKAST 10 MG TAB PO SCH (21:20)
[2022-01-21] MEDS: LATANOPROST 0.005% OPHTH DROPS 2.5 ML BTL BOTH EYES SCH (21:21)
[2022-01-21] MEDS: DEXTROSE 5%-0.45% NACL 1,000 ML IV SCH (21:21)
[2022-01-21] MEDS: lisinopriL 10 MG TAB PO SCH (21:38)
[2022-01-22] MEDS: LACTATED RINGERS 1,000 ML IV SCH (05:45)
[2022-01-22] MEDS: ONDANSETRON 4 MG/2 ML VIAL IVP PRN (05:46)
[2022-01-22] MEDS: MORPHINE SULFATE 2 MG/ML SYRINGE IV PRN (05:49)
[2022-01-22] MEDS: DEXTROSE 5%-0.45% NACL 1,000 ML IV SCH ×2 (05:51→17:05)
[2022-01-22] MEDS: lisinopriL 10 MG TAB PO SCH ×2 (08:04→20:22)
--- NOTE | 2022-01-22 09:39 | P.PN ---
Subjective Progress Note Date: 01/22/22 first post op day from turbt, large, open cystotomy to complete the resection and bleeing controol. Nausea is gone. Pain decreased uo good urine clearing. Discussed the surgery with the patient. Path pending.. Will c/w recouperation. Objective - Vital Signs Vital signs: Vital Signs Temp 97.5 F L 01/22/22 08:00 Pulse 84 01/22/22 08:00 Resp 16 01/22/22 08:00 BP 112/67 01/22/22 08:00 Pulse Ox 96 01/22/22 08:00 FiO2 Intake & Output 01/21/22 01/22/22 01/22/22 18:59 06:59 18:59 Intake Total 2175 Output Total 900 1550 1500 Balance 1275 -1550 -1500 Weight 73.9 kg Intake: IV 1950 Intake, IV Titration 225 Amount Dextrose 5%-0.45% NaCl 1, 225 000 ml @ 75 mls/hr IV . [id number] PENDING SALE TO [facility] Rx#:[id number] Output: Drainage 105 Lower Abdomen 105 Urine 500 1445 1500 Uretheral (Luke) 845 Estimated Blood Loss 400 Other: Voiding Method Indwelling Catheter Indwelling Catheter
[2022-01-22] MEDS: Acetaminophen-Codeine 300-30mg TAB PO PRN (10:49)
[2022-01-22] MEDS: DOCUSATE 100 MG CAP PO SCH (16:59)
[2022-01-22] MEDS: PANTOPRAZOLE 40 MG TABLET PO SCH (16:59)
[2022-01-22] MEDS: LATANOPROST 0.005% OPHTH DROPS 2.5 ML BTL BOTH EYES SCH (20:21)
[2022-01-22] MEDS: diphenhydrAMINE 25 MG CAP PO SCH (20:22)
[2022-01-22] MEDS: MONTELUKAST 10 MG TAB PO SCH (20:22)
[2022-01-23] MEDS: DEXTROSE 5%-0.45% NACL 1,000 ML IV SCH (07:01)
[2022-01-23] MEDS: LACTATED RINGERS 1,000 ML IV SCH (07:01)
--- NOTE | 2022-01-23 07:43 | P.PN ---
Subjective Progress Note Date: 01/23/22 The patient is status post TURBT of a large bladder tumor and eventual open cystotomy to finish the removal of the tumor, controlled bleeding that was not able to be controlled endoscopically. The urine has cleared nicely. She's had a small volume of clot that had to be irrigated out but it this morning it is not bloody. Her abdomen is soft. The drainage is mild to moderate. We will add ditch or pain into her regimen to take care of her bladder urgency. I will discontinue her IV. I'm anticipating discharge in 24-48 hours. Pathology is pending Objective - Vital Signs Vital signs: Vital Signs Temp 98.5 F 01/23/22 01:44 Pulse 86 01/23/22 01:44 Resp 16 01/23/22 01:44 BP 122/65 01/23/22 01:44 Pulse Ox 97 01/23/22 01:44 FiO2 Intake & Output 01/22/22 01/23/22 01/23/22 18:59 06:59 18:59 Intake Total 1400 Output Total 3325 570 Balance -3325 830 Intake: Intake, IV Titration 900 Amount Dextrose 5%-0.45% NaCl 1, 900 000 ml @ 75 mls/hr IV . [id number] [facility] Rx#:[id number] Oral 500 Output: Drainage 50 20 Lower Abdomen 50 20 Urine 3275 550 Uretheral (Luke) 1775 Other: Voiding Method Indwelling Catheter Indwelling Catheter Indwelling Catheter # Bowel Movements 0
[2022-01-23] MEDS: OXYBUTYNIN CHLORIDE 5 MG TAB PO SCH ×3 (10:27→22:21)
[2022-01-23] MEDS: lisinopriL 10 MG TAB PO SCH ×2 (10:28→22:21)
[2022-01-23] MEDS: Acetaminophen-Codeine 300-30mg TAB PO PRN (10:29)
[2022-01-23] MEDS: DOCUSATE 100 MG CAP PO SCH ×2 (10:33→21:03)
[2022-01-23] MEDS: PANTOPRAZOLE 40 MG TABLET PO SCH (17:36)
[2022-01-23] MEDS: diphenhydrAMINE 25 MG CAP PO SCH (21:02)
[2022-01-23] MEDS: MONTELUKAST 10 MG TAB PO SCH (22:21)
[2022-01-23] MEDS: LATANOPROST 0.005% OPHTH DROPS 2.5 ML BTL BOTH EYES SCH (22:22)
[2022-01-24] MEDS: LACTATED RINGERS 1,000 ML IV SCH (07:09)
[2022-01-24] MEDS: OXYBUTYNIN CHLORIDE 5 MG TAB PO SCH ×3 (08:08→20:12)
[2022-01-24] MEDS: lisinopriL 10 MG TAB PO SCH ×2 (08:08→20:11)
--- NOTE | 2022-01-24 10:29 | P.PN ---
Subjective Progress Note Date: 01/24/22 the patient underwent a TURBT, large and open cystotomy to control bleeding and remove the remaining tumor on 01/22/2022. She continues to recuperate nicely. Her abdomen is soft. His urine is clear. She is ambulating. I anticipate discharge in 24-48 hours.pathology shows a noninvasive low-grade carcinoma. Objective - Vital Signs Vital signs: Vital Signs Temp 98.0 F 01/24/22 06:55 Pulse 86 01/24/22 06:55 Resp 16 01/24/22 06:55 BP 127/74 01/24/22 06:55 Pulse Ox 94 L 01/24/22 06:55 FiO2 Intake & Output 01/23/22 01/24/22 01/24/22 18:59 06:59 18:59 Intake Total 10 120 Output Total 4020 1650 Balance -4020 -1640 120 Intake: IV 10 Invasive Line 1 10 Oral 120 Output: Drainage 20 30 Lower Abdomen 20 30 Urine 4000 1620 Uretheral (Luke) 800 600 Other: Voiding Method Indwelling Catheter Indwelling Catheter
[2022-01-24] MEDS: Acetaminophen-Codeine 300-30mg TAB PO PRN (12:55)
[2022-01-24] MEDS: PANTOPRAZOLE 40 MG TABLET PO SCH (16:51)
[2022-01-24] MEDS: DOCUSATE 100 MG CAP PO SCH (20:11)
[2022-01-24] MEDS: MONTELUKAST 10 MG TAB PO SCH (20:11)
[2022-01-24] MEDS: diphenhydrAMINE 25 MG CAP PO SCH (20:11)
[2022-01-24] MEDS: LATANOPROST 0.005% OPHTH DROPS 2.5 ML BTL BOTH EYES SCH (20:12)
[2022-01-25] MEDS: OXYBUTYNIN CHLORIDE 5 MG TAB PO SCH ×3 (07:19→22:11)
[2022-01-25] MEDS: LACTATED RINGERS 1,000 ML IV SCH ×2 (07:20→22:14)
[2022-01-25] MEDS: lisinopriL 10 MG TAB PO SCH ×2 (08:34→22:11)
[2022-01-25 09:43] VITALS: RESP 16
--- NOTE | 2022-01-25 11:26 | P.PN ---
Subjective Progress Note Date: 01/25/22 The patient is postop TURBT, large and open cystotomy to control bleeding and remove remaining tumor. She continues to do well. The drain is removed. Vital signs are stable. Her urine is clear. She does not feel she is ready to go home today. He'll keep her another 24 hours. Should be discharged home tomorrow with an indwelling catheter for another week. She'll follow-up in the office. Pathology report is been discussed with the patient. Objective - Vital Signs Vital signs: Vital Signs Temp 97.9 F 01/25/22 08:00 Pulse 83 01/25/22 08:00 Resp 16 01/25/22 08:00 BP 135/74 01/25/22 08:00 Pulse Ox 99 01/25/22 08:00 FiO2 Intake & Output 01/24/22 01/25/22 01/25/22 18:59 06:59 18:59 Intake Total 1080 Output Total 3005 1715 Balance -1925 -1715 Intake: Oral 1080 Output: Drainage 5 15 Lower Abdomen 5 15 Urine 3000 1700 Uretheral (Luke) 200 Other: Voiding Method Indwelling Catheter
[2022-01-25] MEDS: PANTOPRAZOLE 40 MG TABLET PO SCH (16:58)
[2022-01-25] MEDS: diphenhydrAMINE 25 MG CAP PO SCH (22:10)
[2022-01-25] MEDS: LATANOPROST 0.005% OPHTH DROPS 2.5 ML BTL BOTH EYES SCH (22:11)
[2022-01-25] MEDS: MONTELUKAST 10 MG TAB PO SCH (22:11)
[2022-01-25] MEDS: DOCUSATE 100 MG CAP PO SCH (22:11)
[2022-01-26 07:42] VITALS: BP 107/71; PULSE 78; TEMP 98.5
[2022-01-26] MEDS: OXYBUTYNIN CHLORIDE 5 MG TAB PO SCH (08:20)
[2022-01-26] MEDS: lisinopriL 10 MG TAB PO SCH (08:20)
--- NOTE | 2022-01-26 12:50 | P.DS ---
Providers Expected date of discharge: 01/26/22 Attending physician: Antony Peters Primary care physician: [facility] Course: The patient is a 76 yo female with gross hematuria. CT scan and cystocopy identified a large bladder tumor on the left bladder wall as well as circumferentially around the bladder neck. The patient is status post TURBT of a large bladder tumor and eventual open cystotomy to finish the removal of the tumor, controlled bleeding that was not able to be controlled endoscopically. Her JOHANN drain has been removed. Abdominal incision with rosmery, CDI. Nausea has resolved, no vomiting, tolerating a diet. Pain well controlled. Urine clear and yellow. The patient will go home with her turpin catheter and follow up in the office with Dr. Peters in one week. Pathology report has been discussed with the patient. Patient Condition at Discharge: Good Plan - Discharge Summary Discharge Rx Participant: No New Discharge Prescriptions: New HYDROcodone/APAP 5-325MG [[place] 5-325] 1 tab PO Q4HR PRN 3 Days #18 tab PRN Reason: Pain Cephalexin [Keflex] 500 mg PO Q12HR 1 Days #14 cap HYDROcodone/APAP 5-325MG [[place] 5-325] 1 tab PO Q6HR PRN 3 Days #12 tab PRN Reason: Pain HYDROcodone/APAP 5-325MG [[place] 5-325] 1 tab PO Q6HR PRN 3 Days #12 tab PRN Reason: Pain No Action lisinopriL [Zestril] 10 mg PO BID Omeprazole [PriLOSEC] 20 mg PO AC-SUPPER Montelukast [Singulair] 10 mg PO HS metroNIDAZOLE 0.75% CREAM [Metrocream 0.75%] 1 applic TOPICAL QAM Hydrocortisone Cream [Hydrocortisone 2.5% Cream] 1 applic TOPICAL HS Latanoprost/Pf [Latanoprost 0.005% Eye Drop] 1 drop BOTH EYES HS Doxycycline [Vibramycin] 100 mg PO DAILY Docusate [Colace] 100 mg PO DAILY Discharge Medication List lisinopriL [Zestril] 10 mg PO BID 09/07/14 [History] Montelukast [Singulair] 10 mg PO HS 03/20/20 [History] Omeprazole [PriLOSEC] 20 mg PO AC-SUPPER 03/20/20 [History] Doxycycline [Vibramycin] 100 mg PO DAILY 01/20/22 [History] Hydrocortisone Cream [Hydrocortisone 2.5% Cream] 1 applic TOPICAL HS 01/20/22 [History] Latanoprost/Pf [Latanoprost 0.005% Eye Drop] 1 drop BOTH EYES HS 01/20/22 [History] metroNIDAZOLE 0.75% CREAM [Metrocream 0.75%] 1 applic TOPICAL QAM 01/20/22 [History] Docusate [Colace] 100 mg PO DAILY 01/21/22 [History] Cephalexin [Keflex] 500 mg PO Q12HR 1 Days #14 cap 01/26/22 [Rx] HYDROcodone/APAP 5-325MG [[place] 5-325] 1 tab PO Q4HR PRN 3 Days #18 tab 01/26/22 [Rx] HYDROcodone/APAP 5-325MG [[place] 5-325] 1 tab PO Q6HR PRN 3 Days #12 tab 01/26/22 [Rx] HYDROcodone/APAP 5-325MG [[place] 5-325] 1 tab PO Q6HR PRN 3 Days #12 tab 01/26/22 [Rx] Follow up Appointment(s)/Referral(s): Antony Peters MD [STAFF PHYSICIAN] - 02/02/22 8:40 am Patient Instructions/Handouts: Cephalexin (By mouth), Hydrocodone/Acetaminophen (By mouth), Turpin Catheter Placement and Care (DC), Urinary Leg Bag (GEN), Trans urethral Resection of Bladder Tumors (DC), How to Change a Catheter Drainage Bag (DC) Discharge Disposition: HOME SELF-CARE
== END 2022-01-26 12:43 | disposition home or self-care (01) ==
LOC: OR 08:27 → 4SSUR 13:00 → OR 01-26 12:43
PROVIDERS: ATTEND Urology
DX: C67.9 Malignant neoplasm of bladder, unspecified (principal); I10 Essential (primary) hypertension; K21.9 Gastro-esophageal reflux disease without esophagitis; Z86.69 Personal history of other diseases of the nervous system and sense organs; Z87.2 Personal history of diseases of the skin and subcutaneous tissue; Z98.51 Tubal ligation status; Z98.890 Other specified postprocedural states; Z86.59 Personal history of other mental and behavioral disorders; Z79.01 Long term (current) use of anticoagulants; Z79.02 Long term (current) use of antithrombotics/antiplatelets; Z79.83 Long term (current) use of bisphosphonates; Z79.2 Long term (current) use of antibiotics; Z79.52 Long term (current) use of systemic steroids
CPT/HCPCS: 88307; 74018; 52240; J0330; J1100; J2710; J2765; J0690; J2405 ×2; J3010; J2270 ×2; J2370; J2704; J1170; J2001; 86850; 86900; 86901

== ENCOUNTER → 2022-03-27 | Outpatient (CLI) | payer MEDICARE, OTHER ==
[2022-03-27 14:54] LABS: Basophils # (A) 0.04 X 10*3/uL (0.00-0.10); Basophils % (A) 0.5 %; Eosinophils % (A) 1.3 %; HCT 43.5 % (37.2-46.3); HGB 13.6 g/dL (12.0-15.0); Immature Grans, Automated 0.4 %; Lymphocytes # (A) 1.32 X 10*3/uL (0.90-5.00); Lymphocytes % (A) 17.7 %; MCH 28.8 pg (27.0-32.0); MCHC 31.3 g/dL (32.0-37.0); Mean Platelet Volume 10.8 fL (9.5-12.2); Monocytes # (A) 0.53 X 10*3/uL (0.20-1.00); Monocytes % (A) 7.1 %; NRBC Per 100 WBC 0 /100 WBCS (0.0-0.0); Neutrophils # (A) 5.45 X 10*3/uL (1.80-7.70); Platelet Count 220 X 10*3/uL (140-440); RBC 4.73 X 10*6/uL (4.10-5.20); RDW 12.3 % (11.5-14.5); WBC 7.47 X 10*3/uL (4.50-10.00)
[2022-03-27 15:21] LABS: African American GFR (CKD) 74.7 (60.0-200.0); Albumin 4.4 g/dL (3.8-4.9); Albumin/Globulin Ratio 2.27 (1.60-3.17); Anion Gap 8.7 mmol/L (10.00-18.00); BUN/Creat Ratio 22.55 Ratio (12.00-20.00); Blood Urea Nitrogen 19.8 mg/dL (9.0-27.0); Carbon Dioxide 26.4 mmol/L (20.0-27.5); Non-African American GFR(CKD) 64.5 (60.0-200.0); Potassium 4.9 mmol/L (3.5-5.5); Total Bilirubin 0.5 mg/dL (0.30-1.20); Total Protein 6.4 g/dL (6.2-8.2)
[2022-03-27 19:42] LABS: Appearance,Urine Cloudy (Clear); Bilirubin,Urine Negative (Negative); Blood,Urine Moderate (Negative); Color,Urine Yellow (Yellow); Ketones,Urine Negative (Negative); Nitrite,Urine Positive (Negative); Urobilinogen,Urine 0.2 (0.2,1.0)
[2022-03-27 20:41] LABS: Bacteria,Urine 3+ /HPF (None Seen)
== END | disposition home or self-care (01) ==
LOC: LABPAT 09:40
PROVIDERS: ATTEND Urology
DX: Z01.812 Encounter for preprocedural laboratory examination (principal); C67.9 Malignant neoplasm of bladder, unspecified; R31.29 Other microscopic hematuria
CPT/HCPCS: 80053; 81001; 85025; 87086

== ENCOUNTER 2022-04-08 06:11 | Day surgery (SDC) | payer MEDICARE, OTHER ==
[2022-04-03 09:12] VITALS: BMI 28.1
--- NOTE | 2022-04-07 10:05 | P.GSHP ---
History of Present Illness H&P Date: 04/07/22 76 yo female with low grade non invasive ca bladder resected 01/21/2022. The tumor was large. I repeated cystoscopy recently and there is persistent tumor. SHe comes for repeat resection. - Constitutional Constitutional: Denies chills, Denies fever - EENT Eyes: denies blurred vision, denies pain Ears, nose, mouth and throat: Denies headache, Denies sore throat - Cardiovascular Cardiovascular: Denies chest pain, Denies shortness of breath - Respiratory Respiratory: Denies cough, Denies 7 - Gastrointestinal Gastrointestinal: Denies abdominal pain, Denies diarrhea, Denies nausea, Denies vomiting - Genitourinary (Female) Genitourinary: Denies dysuria, Denies hematuria - Genitourinary (Male) Genitourinary: Denies dysuria, Denies hematuria - Musculoskeletal Musculoskeletal: Denies myalgias - Integumentary Integumentary: Denies pruritus, Denies rash - Neurological Neurological: Denies numbness, Denies weakness - Psychiatric Psychiatric: Denies anxiety, Denies depression - Endocrine Endocrine: Denies fatigue, Denies weight change Past Medical History Past Medical History: Cancer, Eye Disorder, GERD/Reflux, Hypertension, Skin Disorder Additional Past Medical History / Comment(s): Current bladder cancer. Seasonal allergies. Osteopenia. 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 Rosacea. History of Any Multi-Drug Resistant Organisms: None Reported Past Surgical History: Tubal Ligation Additional Past Surgical History / Comment(s): Transurethral resection of blad randy tumor, D&C, colonoscopy, upper endoscopy. Past Anesthesia/Blood Transfusion Reactions: No Reported Reaction, Motion Sickness, Postoperative Nausea & Vomiting (PONV) Additional Past Anesthesia/Blood Transfusion Reaction / Comment(s): Pt adopted, family hx unknown. Smoking Status: Never smoker - Past Family History Mother History Unknown: Yes Family Medical History: Unable to Obtain Additional Family Medical History / Comment(s): Family history unknown, patient adopted. Medications and Allergies Home Medications Medication Instructions Recorded Confirmed Type lisinopriL [Zestril] 10 mg PO BID 09/07/14 04/03/22 History Montelukast [Singulair] 10 mg PO HS 03/20/20 04/03/22 History Omeprazole [PriLOSEC] 20 mg PO AC-SUPPER 03/20/20 04/03/22 History Hydrocortisone Cream 1 applic TOPICAL HS 01/20/22 04/03/22 History [Hydrocortisone 2.5% Cream] Latanoprost/Pf [Latanoprost 0.005% 1 drop BOTH EYES HS 01/20/22 04/03/22 History Eye Drop] metroNIDAZOLE 0.75% CREAM 1 applic TOPICAL QAM 01/20/22 04/03/22 History [Metrocream 0.75%] Cetirizine HCl [Zyrtec] 20 mg PO DAILY 04/03/22 04/03/22 History Sulfamethox-Tmp 800-160Mg [Bactrim 1 tab PO Q12HR 04/03/22 04/03/22 History DS 800-160 mg] Allergies Allergy/AdvReac Type Severity Reaction Status Date / Time No Known Allergies Allergy Verified 04/03/22 08:56 Surgical - Exam - General well developed, well nourished, no distress - Eyes normal ocular movement, no icteric - ENT no hearing loss, no congestion - Neck no masses, trachea midline - Respiratory normal respiratory effort, clear to auscultation - Abdomen Abdomen: soft, non tender, no guarding, no rigid, no rebound - Integumentary no rash, no abnormal pigmentation - Neurologic no disoriented, no combative - Psychiatric oriented to time, oriented to person, oriented to place, speech is normal, memory intact Assessment and Plan Assessment: Impression. 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 Plan: turbt
[2022-04-08] MEDS ORDERED: DEXAMETHASONE SOD PHOSPHATE 4 MG/ML 1 ML VIAL IV ONE (06:40)
[2022-04-08] MEDS ORDERED: ONDANSETRON 4 MG/2 ML VIAL IVP ONE ×2 (06:40→14:30)
[2022-04-08] MEDS: LACTATED RINGERS 1,000 ML IV SCH ×3 (06:44→13:25)
[2022-04-08] MEDS ORDERED: FAMOTIDINE 20 MG/2 ML VIAL IVP ONE (07:08)
[2022-04-08] MEDS ORDERED: SUCCINYLCHOLINE CHLORIDE 200 MG/10 ML VIAL IV ONE (07:22)
[2022-04-08] MEDS ORDERED: ePHEDrine 50 MG/ML 1 ML VIAL ONE (07:22)
[2022-04-08] MEDS ORDERED: PROPOFOL 10 MG/ML 20 ML VIAL IV ONE (07:22)
[2022-04-08] MEDS ORDERED: LIDOCAINE 2% INJ 20 MG/ML (2 ML VIAL) ONE (07:22)
[2022-04-08] MEDS ORDERED: fentaNYL (PF) 50 MCG/ML 2 ML AMP ONE (07:22)
[2022-04-08] MEDS ORDERED: PHENYLEPHRINE-0.9% NACL SYG 1,000 MCG/10 ML SYRINGE ONE (07:22)
[2022-04-08] MEDS ORDERED: MIDAZOLAM 2 MG/2 ML VIAL ONE (07:22)
--- NOTE | 2022-04-08 08:49 | P.OP ---
Date of Procedure: 04/08/22 Preoperative Diagnosis: Recurrent bladder cancer Postoperative Diagnosis: Same, large Procedure(s) Performed: TURBT large (5 cm) Anesthesia: JOSELINE Surgeon: Antony Peters Estimated Blood Loss (ml): 25 Condition: stable Disposition: PACU Indications for Procedure: Patient is 76. Few months ago she had resection of a large volume of grade 1 TA bladder cancer. She had a follow-up cystoscopy recently identifying again a large amount of tumor. Tumor is in the left lateral wall the right lateral wall extending into the bladder neck from 1:[address] a counterclockwise fashion to 6:00. She comes for resection. Description of Procedure: Patient brought to the operative suite. Given general anesthesia. Placed lithotomy position with sterile prep and drape. The 25-Malawian sheath and direct vision obturator introduced into the bladder. The Hanks resectoscope ident ified tumor on the left trigone and left lateral bladder wall resected and then identify the large volume of tumor (greater than 5 cm) extending from about 1:00 to 6:00 in a counterclockwise fashion at the bladder neck and extending proximally into the bladder body more prominently on the right lateral wall. All resected. Bleeding is controlled electrocautery. Freed the bladder tumor with evacuation. I reinspected the bladder there is no active bleeding. An 18- Malawian Luke catheters placed. The patient is awakened and returned recovery room in good condition. She'll be discharged home upon recovery and found the office in one week for catheter removal and pathology report for further discussion.
[2022-04-08] MEDS: HYDROmorphone 0.5 MG/0.5 ML SYRINGE IVP PRN ×2 (09:04→09:13)
[2022-04-08] MEDS ORDERED: METOCLOPRAMIDE 5 MG/ML 2 ML VIAL ONE (10:55)
[2022-04-08] MEDS ORDERED: Acetaminophen-Codeine 300-30mg TAB PO PRN (13:27)
[2022-04-08] MEDS ORDERED: ACETAMINOPHEN TAB 325 MG TAB PO PRN (13:27)
[2022-04-08] MEDS ORDERED: ONDANSETRON ODT 4 MG TAB PO PRN (13:32)
[2022-04-08] MEDS ORDERED: ONDANSETRON 4 MG/2 ML VIAL ONE (14:30)
--- NOTE | 2022-04-08 16:19 | P.PN ---
Subjective Progress Note Date: 04/08/22 the patient underwent a turbt today of a large recurrent bt. SHe had persistent post op nausea.. SHe is placed in the hospital for IVF, antiemetics. If this passes she can go home in the am. Objective - Vital Signs Vital signs: Vital Signs Temp 97.5 F L 04/08/22 15:07 Pulse 80 04/08/22 15:07 Resp 18 04/08/22 15:07 BP 137/73 04/08/22 15:07 Pulse Ox 98 04/08/22 15:07 FiO2 Intake & Output 04/07/22 04/08/22 04/08/22 18:59 06:59 18:59 Intake Total 100 2600 Output Total 250 Balance 100 2350 Weight 73.3 kg 73.3 kg Intake: IV 100 2600 Output: Urine 225 Estimated Blood Loss 25
[2022-04-08] MEDS: DEXTROSE 5%-0.45% NACL 1,000 ML IV SCH (17:23)
[2022-04-08] MEDS ORDERED: MONTELUKAST 10 MG TAB PO SCH (21:00)
[2022-04-08] MEDS ORDERED: LATANOPROST 0.005% OPHTH DROPS 2.5 ML BTL BOTH EYES SCH (21:00)
[2022-04-08] MEDS: lisinopriL 10 MG TAB PO SCH (21:38)
[2022-04-09] MEDS: DEXTROSE 5%-0.45% NACL 1,000 ML IV SCH ×2 (01:03→09:50)
[2022-04-09 08:01] VITALS: BP 131/76; PULSE 74; RESP 16; TEMP 98.2
--- NOTE | 2022-04-09 08:47 | P.DS ---
Providers Expected date of discharge: 04/09/22 Attending physician: Antony Peters Primary care physician: Flower Benitez - Discharge Diagnosis(es) (1) Bladder cancer Current Visit: No Status: Acute Hospital Course: The patient is a 76-year-old female. A few months ago she had resection of a large volume of grade 1 TA bladder cancer. She had a follow-up cystoscopy recently identifying again a large amount of tumor. Tumor is in the left lateral wall the right lateral wall extending into the bladder neck from 1:[address] in a counterclockwise fashion to 6:00. On 04/08/22 she had an elective TURBT large (5 cm) with Dr. Peters. The patient tolerated the procedure well and was taken to the PACU in good condition. However, she experienced persistent post op nausea while in the recovery room. She was placed in the hospital overnight for IVF and antiemetics. POD #1 her nausea has subsided and she is tolerating a diet. Pain is well controlled. She is discharged home and will follow up with Dr. Peters in one week for Turpin catheter removal and to discuss pathology report. She was instructed to take Tylenol and Motrin for pain. Impression and plan of care have been directed as dictated by the signing physician. Dasha Arita nurse practitioner acting as scribe for signing physician. Dasha Arita [facility] Palliative Care/Urology Spectralink [id number] Email: [email or web address] Patient Condition at Discharge: Good Plan - Discharge Summary Discharge Rx Participant: No New Discharge Prescriptions: Continue lisinopriL [Zestril] 10 mg PO BID Omeprazole [PriLOSEC] 20 mg PO AC-SUPPER Montelukast [Singulair] 10 mg PO HS metroNIDAZOLE 0.75% CREAM [Metrocream 0.75%] 1 applic TOPICAL QAM Hydrocortisone Cream [Hydrocortisone 2.5% Cream] 1 applic TOPICAL HS Cetirizine HCl [Zyrtec] 20 mg PO DAILY Latanoprost/Pf [Latanoprost 0.005% Eye Drop] 1 drop BOTH EYES HS Sulfamethox-Tmp 800-160Mg [Bactrim DS 800-160 mg] 1 tab PO Q12HR Discharge Medication List lisinopriL [Zestril] 10 mg PO BID 09/07/14 [History] Montelukast [Singulair] 10 mg PO HS 03/20/20 [History] Omeprazole [PriLOSEC] 20 mg PO AC-SUPPER 03/20/20 [History] Hydrocortisone Cream [Hydrocortisone 2.5% Cream] 1 applic TOPICAL HS 01/20/22 [History] Latanoprost/Pf [Latanoprost 0.005% Eye Drop] 1 drop BOTH EYES HS 01/20/22 [History] metroNIDAZOLE 0.75% CREAM [Metrocream 0.75%] 1 applic TOPICAL QAM 01/20/22 [History] Cetirizine HCl [Zyrtec] 20 mg PO DAILY 04/03/22 [History] Sulfamethox-Tmp 800-160Mg [Bactrim DS 800-160 mg] 1 tab PO Q12HR 04/03/22 [History] Follow up Appointment(s)/Referral(s): Antony Peters MD [STAFF PHYSICIAN] - 1 Week Patient Instructions/Handouts: *[facility] - Turpin Catheter Instructions, *[facility] - Managing Your Pain After Surgery Without Opioids, *[facility] - (Anesthesia) Discharge Instructions Outpatient Surgery, Cystoscopy (DC), Transurethral Resection of Bladder Tumors (DC) Activity/Diet/Wound Care/Special Instructions: tylenol and or motrin for pain Home with turpin Discharge Disposition: HOME SELF-CARE
[2022-04-09] MEDS ORDERED: LORATADINE 10 MG TAB PO SCH (09:00)
[2022-04-09] MEDS: lisinopriL 10 MG TAB PO SCH (09:50)
[2022-04-09] MEDS ORDERED: PANTOPRAZOLE 40 MG TABLET PO SCH (17:30)
== END 2022-04-09 10:27 | disposition home or self-care (01) ==
LOC: OR 06:11 → 4SSUR 08:49 → OR 04-09 10:27
PROVIDERS: ATTEND Urology
DX: C67.9 Malignant neoplasm of bladder, unspecified (principal); K21.9 Gastro-esophageal reflux disease without esophagitis; I10 Essential (primary) hypertension; Z85.51 Personal history of malignant neoplasm of bladder; Z98.890 Other specified postprocedural states; Z79.899 Other long term (current) drug therapy
CPT/HCPCS: 52240; J2250; J0330; J1100; J2765; J0690; J2405; J3010; J2370; J2704; J1170; J1790; J2001; 88307

== ENCOUNTER → 2022-09-28 | Outpatient (CLI) | payer MEDICARE, OTHER ==
[2022-09-28 15:20] LABS: Appearance,Urine Clear (Clear); Bilirubin,Urine Negative (Negative); Blood,Urine Small (Negative); Color,Urine Yellow; Glucose,Urine (UA) Negative (Negative); Ketones,Urine Negative (Negative); Leukocyte Esterase,Urine Moderate (Negative); Mucus,Urine Rare /hpf; Nitrite,Urine Negative (Negative); Protein,Urine Negative (Negative); RBC,Urine 12 /hpf (0-5); Specific Gravity,Urine 1.023 (1.001-1.035); Squamous Epithelial Cell,Urine 6 /hpf (0-4); Urobilinogen,Urine <2.0 mg/dL (<2.0); WBC,Urine 9 /hpf (0-5)
[2022-09-29 21:34] LABS: BUN/Creat Ratio 24.56 Ratio (12.00-20.00); Blood Urea Nitrogen 22.1 mg/dL (9.0-27.0); Calcium 10.5 mg/dL (8.7-10.3); Carbon Dioxide 25.1 mmol/L (21.6-31.8); Chloride 104 mmol/L (96-109); Glucose 85 mg/dL (70-110); Potassium 5.1 mmol/L (3.5-5.5); Sodium 142 mmol/L (135-145)
[2022-09-29 22:29] LABS: Basophils # (A) 0.05 X 10*3/uL (0.00-0.10); Basophils % (A) 0.7 %; Eosinophils % (A) 2.9 %; HCT 45.1 % (37.2-46.3); HGB 14.2 d/dL (12.0-15.0); Lymphocytes # (A) 2.23 X 10*3/uL (0.90-5.00); Lymphocytes % (A) 32.2 %; MCH 28.3 pg (27.0-32.0); MCHC 31.5 d/dL (32.0-37.0); Mean Platelet Volume 11.7 FL (9.5-12.2); Monocytes # (A) 0.59 X 10*3/uL (0.20-1.00); Monocytes % (A) 8.5 %; NRBC Per 100 WBC 0 X 10*3/uL (0.00-0.01); Neutrophils # (A) 3.84 X 10*3/uL (1.80-7.70); Neutrophils % (A) 55.4 %; Platelet Count 199 X 10*3/uL (140-440); RBC 5.01 X 10*6/uL (4.10-5.20); RDW 12.7 % (11.5-14.5); WBC 6.93 X 10*3/uL (4.50-10.00)
== END | disposition home or self-care (01) ==
LOC: LABPAT 14:10
PROVIDERS: ATTEND Urology
DX: Z01.812 Encounter for preprocedural laboratory examination (principal); C67.9 Malignant neoplasm of bladder, unspecified
CPT/HCPCS: 36415; 80048; 81001; 85025; 87086

== ENCOUNTER 2022-10-14 06:09 | Day surgery (SDC) | payer MEDICARE, OTHER ==
--- NOTE | 2022-10-13 16:15 | P.GSHP ---
History of Present Illness H&P Date: 10/13/22 77 yo femal e with a istory of grade 3 t1 tcc who has undergone bcg intravesical therapy. a fu cysto identified recurrent bt. She comes for repeat turbt with bilateral retrograde pyelograms. - Constitutional Constitutional: Denies chills, Denies fever - EENT Eyes: denies blurred vision, denies pain Ears, nose, mouth and throat: Denies headache, Denies sore throat - Cardiovascular Cardiovascular: Denies chest pain, Denies shortness of breath - Respiratory Respiratory: Denies cough, Denies 7 - Gastrointestinal Gastrointestinal: Denies abdominal pain, Denies diarrhea, Denies nausea, Denies vomiting - Genitourinary (Female) Genitourinary: Denies dysuria, Denies hematuria - Genitourinary (Male) Genitourinary: Denies dysuria, Denies hematuria - Musculoskeletal Musculoskeletal: Denies myalgias - Integumentary Integumentary: Denies pruritus, Denies rash - Neurological Neurological: Denies numbness, Denies weakness - Psychiatric Psychiatric: Denies anxiety, Denies depression - Endocrine Endocrine: Denies fatigue, Denies weight change Past Medical History Past Medical History: Cancer, Eye Disorder, GERD/Reflux, Hypertension, Skin Disorder Additional Past Medical History / Comment(s): Current bladder cancer. Seasonal allergies. Osteopenia. Ocular hypertension. Rosacea. History of Any Multi-Drug Resistant Organisms: None Reported Past Surgical History: Tubal Ligation Additional Past Surgical History / Comment(s): Transurethral resection of bladder tumor x2, D&C, colonoscopy, upper endoscopy, Past Anesthesia/Blood Transfusion Reactions: No Reported Reaction, Motion Sickness, Postoperative Nausea & Vomiting (PONV) Additional Past Anesthesia/Blood Transfusion Reaction / Comment(s): Pt adopted, family hx unknown. last surgery severe post op nausea Smoking Status: Never smoker - Past Family History Mother History Unknown: Yes Family Medical History: Unable to Obtain Additional Family Medical History / Comment(s): Family history unknown, patient adopted. Medications and Allergies Home Medications Medication Instructions Recorded Confirmed Type lisinopriL [Zestril] 10 mg PO BID 09/07/14 10/07/22 History Montelukast [Singulair] 10 mg PO HS 03/20/20 10/07/22 History Omeprazole [PriLOSEC] 20 mg PO AC-SUPPER 03/20/20 10/07/22 History Hydrocortisone Cream 1 applic TOPICAL HS PRN 01/20/22 10/07/22 History [Hydrocortisone 2.5% Cream] Latanoprost/Pf [Latanoprost 0.005% 1 drop BOTH EYES HS 01/20/22 10/07/22 History Eye Drop] metroNIDAZOLE 0.75% CREAM 1 applic TOPICAL QAM 01/20/22 10/07/22 History [Metrocream 0.75%] Cetirizine HCl [Zyrtec] 20 mg PO DAILY 04/03/22 10/07/22 History Allergies Allergy/AdvReac Type Severity Reaction Status Date / Time No Known Allergies Allergy Verified 10/07/22 10:48 Surgical - Exam - General well developed, well nourished, no distress - Eyes normal ocular movement, no icteric - ENT no hearing loss, no congestion - Neck no masses, trachea midline - Respiratory normal respiratory effort, clear to auscultation - Abdomen Abdomen: soft, non tender, no guarding, no rigid, no rebound - Integumentary no rash, no abnormal pigmentation - Neurologic no disoriented, no combative - Psychiatric oriented to time, oriented to person, oriented to place, speech is normal, memory intact Assessment and Plan Assessment: Impression: Recurrent bladder ca. Multiple medical illnesses Plan: turbt with bilateral retrograde pyelograms
[~2022-10-14 06:09] MED LIST changes: -HYDROmorphone 0.5 MG/0.5 ML SYRINGE IVP PRN; -LIDOCAINE 1% (10MG/ML) FOR IV START INTRADERMA PRN; -MIDAZOLAM 2 MG/2 ML VIAL IV PRN; +Pre Op ABX Message 1 EACH MISC MISCELLANE ONE
[2022-10-14] MEDS ORDERED: HYDROmorphone 0.5 MG/0.5 ML SYRINGE IVP PRN (06:18)
[2022-10-14] MEDS ORDERED: LIDOCAINE 1% (10MG/ML) FOR IV START INTRADERMA PRN (06:18)
[2022-10-14] MEDS ORDERED: ONDANSETRON 4 MG/2 ML VIAL IVP ONE (06:18)
[2022-10-14] MEDS ORDERED: LACTATED RINGERS 1,000 ML IV SCH (06:18)
[2022-10-14] MEDS ORDERED: DEXAMETHASONE SOD PHOSPHATE 4 MG/ML 1 ML VIAL IV ONE (06:18)
[2022-10-14] MEDS ORDERED: MIDAZOLAM 2 MG/2 ML VIAL IV PRN (06:18)
[2022-10-14] MEDS ORDERED: LACTATED RINGERS 1,000 ML IV ONE (07:02)
[2022-10-14] MEDS ORDERED: SUCCINYLCHOLINE CHLORIDE 200 MG/10 ML VIAL IV ONE (07:27)
[2022-10-14] MEDS ORDERED: fentaNYL (PF) 50 MCG/ML 2 ML AMP ONE (07:27)
[2022-10-14] MEDS ORDERED: LIDOCAINE 2% INJ 20 MG/ML (2 ML VIAL) ONE (07:27)
[2022-10-14] MEDS ORDERED: PROPOFOL 10 MG/ML 20 ML VIAL IV ONE (07:27)
[2022-10-14] MEDS ORDERED: IOPAMIDOL-370 100ML BTL MISCELLANE ONE (07:51)
--- NOTE | 2022-10-14 08:29 | P.OP ---
Date of Procedure: 10/14/22 Preoperative Diagnosis: Recurrent superficial bladder cancer Postoperative Diagnosis: Same Procedure(s) Performed: Cystoscopy bilateral retrograde pyelograms, transurethral resection of bladder tumor (medium, 2 cm volume. Anesthesia: NOELA Surgeon: Antony Peters Estimated Blood Loss (ml): 0 Pathology: other (Bladder tumor) Condition: stable Disposition: PACU Indications for Procedure: The patient is 77. She has a history of grade 3 T1 bladder cancer. She is status post 6 intravesical BCG treatments. Follow-up cystoscopy identified 5-6 bladder tumors total volume greater than 2 cm on the anterior left lateral wall. She comes retrograde pyelograms and resection and fulguration of tumors Description of Procedure: Patient brought to the operative suite. Given general anesthesia. Placed lithotomy position with a sterile prep and drape. A cystocele is noted, grade 3 the bladder is intubated with a 22-Maori sheath and Foroblique lens. The left ureteral orifice is patulous and somewhat laterally displaced due to previous resection. The right ureteral orifice is on the trigone which is difficult to access due to her cystocele. I reduced her cystocele which makes the trigone more visible. In the anterior bladder wall are 3 small tumors on the left anterior bladder wall there is a medium-sized tumor as well as in the left lateral wall. Retrograde pyelograms performed within a 8 cone-tipped catheter. I do a pullout retrograde pyelograms. The left ureteral orifice is patulous and therefore more difficult to occlude. The ureter and collecting system was normal. The right side is also done within a 8 cone-tipped catheter and the ureters of normal course and caliber without obstruction or filling defect. I then introduced resectoscope. I resect the tumor on the left lateral wall. She has an obturator reflex causing some deeper resection. I cauterized thoroughly. The other tumors I elect to primarily cauterize as they are superficial. In her bladder serna is thin. Then the procedure I inspect the bladder. There is no notable perforation. All the tumors are gone. All the bladder tumor site then cauterized thoroughly and there is no active bleeding. An 18-Maori Luke catheter introduced the bladder with clear urine return and easy irrigation. Impression successful resection of bladder tumors normal retrograde pyelogram. The patient be discharged home upon recovery and found the office in one week for catheter removal and biopsy report
--- NOTE | 2022-10-14 08:29 | FL ---
EXAMINATION TYPE: FL urography retrograde DATE OF EXAM: 10/14/2022 COMPARISON: NONE HISTORY: Fluoroscopy time. Fluoroscopy was provided to the referring clinician. 2.05min fluoro time 14.040 DAP
[2022-10-14 08:38] VITALS: TEMP 96.9
[2022-10-14 08:46] VITALS: RESP 16
[2022-10-14 10:10] VITALS: BP 128/74; PULSE 76
== END 2022-10-14 10:20 | disposition home or self-care (01) ==
LOC: OR 06:09
PROVIDERS: ATTEND Urology
DX: C67.9 Malignant neoplasm of bladder, unspecified (principal); K21.9 Gastro-esophageal reflux disease without esophagitis; I10 Essential (primary) hypertension; M85.80 Other specified disorders of bone density and structure, unspecified site; Z85.51 Personal history of malignant neoplasm of bladder; Z98.51 Tubal ligation status; Z79.899 Other long term (current) drug therapy
CPT/HCPCS: 74420; 52235; C1758; J0330; J1100; J2405; J3010; J2704; Q9967; J2001; 88307

== ENCOUNTER → 2023-02-09 | Outpatient (CLI) | payer MEDICARE, OTHER ==
[2023-02-09 14:32] VITALS: BP 137/82; PULSE 95; RESP 17; TEMP 98.3
--- NOTE | 2023-02-09 15:16 | P.HPOB ---
History of Present Illness H&P Date: 02/09/23 Chief Complaint: The patient is here for her routine gynecologic exam and ma mmogram. This is a 77-year-old with an LMP of 1999. The patient is without gynecologic complaints and denies any postmenopausal bleeding. Review of Systems She has lost about 3 pounds over the past 2 years. She denies respiratory, cardiac, or GI problems. Past Medical History Past Medical History: Cancer, Eye Disorder, GERD/Reflux, Hypertension, Skin Disorder Additional Past Medical History / Comment(s): Bladder cancer 2021. Seasonal allergies. Osteopenia. Ocular hypertension. Rosacea. 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 History of Any Multi-Drug Resistant Organisms: None Reported Past Surgical History: Tubal Ligation Additional Past Surgical History / Comment(s): Transurethral resection of bladder tumor x2, D&C, colonoscopy, upper endoscopy, Past Anesthesia/Blood Transfusion Reactions: No Reported Reaction, Motion Sickness Additional Past Anesthesia/Blood Transfusion Reaction / Comment(s): Pt adopted, family hx unknown. Past Psychological History: No Psychological Hx Reported (PHQ-2 questionaire was given and she scores 0. This is a negative screen for depression.) Smoking Status: Never smoker Past Alcohol Use History: None Reported Additional Past Alcohol Use History / Comment(s): No alcohol in 4-5 years. Past Drug Use History: None Reported Additional History: She has been since 1990 and is infrequently sexually active. She has several great grandchildren. She is retired. - Past Family History Mother History Unknown: Yes Family Medical History: Unable to Obtain Additional Family Medical History / Comment(s): Family history unknown, patient adopted. Medications and Allergies Home Medications Medication Instructions Recorded Confirmed Type lisinopriL [Zestril] 10 mg PO BID 09/07/14 02/09/23 History Montelukast [Singulair] 10 mg PO HS 03/20/20 02/09/23 History Omeprazole [PriLOSEC] 20 mg PO AC-SUPPER 03/20/20 02/09/23 History Hydrocortisone Cream 1 applic TOPICAL HS PRN 01/20/22 02/09/23 History [Hydrocortisone 2.5% Cream] Latanoprost/Pf [Latanoprost 0.005% 1 drop BOTH EYES HS 01/20/22 02/09/23 History Eye Drop] metroNIDAZOLE 0.75% CREAM 1 applic TOPICAL DAILY 01/20/22 02/09/23 History [Metrocream 0.75%] Cetirizine HCl [Zyrtec] 20 mg PO DAILY 04/03/22 02/09/23 History Triamcinolone 0.1% Cream [Kenalog 1 applic TOPICAL BID PRN 10/26/22 02/09/23 History 0.1% Cream] Acetaminophen Tab [Tylenol] 1,000 mg PO Q6HR PRN tab 10/31/22 02/09/23 Rx Amoxic-Pot Clav 875-125Mg 1 tab PO BID 10 Days #20 tab 10/31/22 02/09/23 Rx [Augmentin 875-125] Sennosides [Senokot] 8.6 mg PO BID PRN 3 Days #6 tab 10/31/22 02/09/23 Rx Allergies Allergy/AdvReac Type Severity Reaction Status Date / Time No Known Allergies Allergy Verified 02/09/23 13:56 Exam Vital Signs Temp Pulse Resp BP Pulse Ox 02/09/23 14:15 98.3 F 95 17 137/82 98 Intake and Output 02/09/23 02/09/23 02/09/23 06:59 14:59 22:59 Other: Weight 71.214 kg Height 5 feet 4 inches, weight 157 pounds, BMI 26.9. This is a well-developed well-nourished white female who is alert and oriented times 3 in no acute distress. HEENT: Within normal limits. NECK: Supple without mass or thyromegaly. CHEST AND LUNGS: Clear to auscultation. HEART: Regular rate and rhythm. BREASTS: Are without mass or discharge. AXILLARY EXAM: Negative for adenopathy. BACK: Negative for CVA tenderness. ABDOMEN: Soft, nontender, without palpable masses. PELVIC EXAM: Normal external genitalia with mild atrophy. Cervix and vagina appear normal mild atrophy. There is no unusual discharge. There is no evidence of prolapse. The uterus is midposition, nongravid size and nontender. There are no palpable adnexal masses or tenderness. RECTAL EXAM: Rectovaginal exam is negative for mass or tenderness and is negative for occult blood. EXTREMITIES: Nontender. IMPRESSION: 1. 77-year-old menopausal female with normal gynecologic exam. 2. History of osteopenia. 3. History of bladder cancer. PLAN: 1. Pap smears have been discontinued. 2. Self breast awareness was discussed with the patient. We have also discussed symptoms associated with inflammatory breast cancer. 3. Screening mammogram will be done today. 4. Osteoporosis prevention was discussed. I have stressed the importance of adequate calcium, vitamin D and regular exercise. Recommended amounts of calcium and vitamin D were also discussed. Her last bone density test was done more than 3 years ago. I have recommended that she repeat the bone density test and the order slip was given to the patient for this. 5. PHQ-2 questionaire was given and she scores 0. This is a negative screen for depression. 6. She will continue to follow-up with her urologist for her bladder cancer. 7. She was advised to return in one year for her annual well woman exam.
--- NOTE | 2023-02-10 07:55 | MM ---
Reason for Exam: Screening (asymptomatic). Last mammogram was performed 2 year(s) and 4 month(s) ago. Patient History: Menarche at age 14. First Full-Term at age 20. Postmenopausal. Other cancer. Risk Values: Naty 5 year model risk: 1.3%. NCI Lifetime model risk: 2.6%. Prior Study Comparison: 09/22/2017 Bilateral Screening Mammogram, [facility]. 11/09/2018 Bilateral Screening Mammogram, [facility]. 09/17/2020 Bilateral Screening Mammogram, [facility]. Tissue Density: The breast tissue is heterogeneously dense. This may lower the sensitivity of mammography. Findings: Analyzed By CAD. There is no suspicious group of microcalcifications or new suspicious mass in either breast. Benign calcifications within both breasts. Overall Assessment: Benign, BI-RAD 2 Management: Screening Mammogram of both breasts in 1 year. A clinical breast exam by your physician is recommended on an annual basis and results should be correlated with mammographic findings. Note on Naty scores and lifetime risk: 1. A Naty score greater than 3% is considered moderate risk. If this is the case, consider specialist referral to assess eligibility for a risk reducing agent. If overall lifetime risk for the development of breast cancer is 20% or higher, the patient may qualify for future screening with alternating mammogram and breast MRI. Electronically signed and approved by: Víctor Ramos D.O.
== END ==
LOC: WWCWWP 13:44
PROVIDERS: ATTEND Obstetrics & Gynecology
DX: Z12.31 Encounter for screening mammogram for malignant neoplasm of breast (principal); M85.80 Other specified disorders of bone density and structure, unspecified site; I10 Essential (primary) hypertension; K21.9 Gastro-esophageal reflux disease without esophagitis; Z85.51 Personal history of malignant neoplasm of bladder; Z78.0 Asymptomatic menopausal state; Z79.899 Other long term (current) drug therapy
CPT/HCPCS: 77063; 77067

== ENCOUNTER → 2023-03-03 | Outpatient (CLI) | payer MEDICARE, OTHER ==
--- NOTE | 2023-03-03 15:39 | BD ---
EXAMINATION TYPE: Axial Bone Density DATE OF EXAM: 03/03/2023 CLINICAL HISTORY: 77 years old Female. ICD-10 CODE: Z78.0 ASYMPTOMATIC MENOPAUSAL STATE Height: 63" Weight: 157lbs FRAX RISK QUESTIONS: Alcohol (3 or more units per day): No Family History (Parent hip fracture): Unknown Glucocorticoids (More than 3mos): Yes, cream (Ex: prednisone, prednisolone, methylprednisolone, dexamethasone, and hydrocortisone). History of Fracture in Adulthood: No Secondary Osteoporosis: 1. Type 1 Diabetes: No 2. Hyperthyroidism: No 3. Menopause before 45: No 4. Malnutrition: No 5. Chronic liver disease: No Rheumatoid Arthritis: No Current Tobacco Use: No RISK FACTORS HISTORY OF: Hip Fracture (Right/Left): No Spine Fracture: No History of Wrist Fracture: No Surgery to Spine/Hip(right/left)/Wrist (right/left): No Family History of Osteoporosis: Unknown Active: Yes Diet low in dairy products/other sources of calcium: Yes Postmenopausal woman: Yes Lost more than 2 inches in height since high school: No Frequent falls: No Poor Health: No Hyperparathyroidism: No Adrenal Insufficiency: No MEDICATIONS: Prednisone or other steroids: Yes How Lon.5 years, hydrocortisone cream Thyroid Medications: No Osteoporosis Medications: No Additional Medications: Blood pressure meds, reflux medication, hydrocortisone cream, post nasal drip medication, vitamin D, Calcium Additional History: Hx of bladder cancer EXAM MEASUREMENTS: Bone mineral densitometry was performed using the nuPSYS System. Bone mineral density as measured about the Lumbar spine is: ----- L1-L4(G/cm2): 0.969 T Score Values are as follows: ----- L1: -1.7 ----- L2: -2.4 ----- L3: -1.8 ----- L4: -1.5 ----- L1-L4: -1.8 Z Score Values are as follows: ----- L1: -0.2 ----- L2: -0.9 ----- L3: -0.3 ----- L4: 0.1 ----- L1-L4: -0.2 Bone mineral density has: decreased -14.2% since study of: 11/09/2018 Bone mineral density about the R hip (g/cm2): 0.879 Bone mineral density about the L hip (g/cm2): 0.813 T Score values are as follows: -----R Neck: -1.4 -----L Neck: -1.8 -----R Total: -1.0 -----L Total: -1.5 Z Score values are as follows: -----R Neck: 0.4 -----L Neck: 0.0 -----R Total: 0.6 -----L Total: 0.1 Bone mineral density has: decreased -4.8% since study of: 11/09/2018 FRAX%s: The graph provided illustrates a 29.5% chance for a major osteoporotic fx and a 8.1% chance f or the hips probability for fx in 10 years time. IMPRESSION: Osteopenia (T Score between -2.5 and -1). There is slightly increased risk of fracture and the patient may be considered for treatment. Re-Screen 2-5 years. NOTE: T-SCORE=SD OF THE YOUNG ADULT MEAN.
== END | disposition home or self-care (01) ==
LOC: RADBDWWP 09:08
PROVIDERS: ATTEND Obstetrics & Gynecology
DX: M85.89 Other specified disorders of bone density and structure, multiple sites (principal); Z78.0 Asymptomatic menopausal state
CPT/HCPCS: 77080

== ENCOUNTER → 2024-03-13 | Outpatient (CLI) | payer MEDICARE, OTHER ==
[2024-03-13 11:18] LABS: Appearance,Urine Clear (Clear); Bilirubin,Urine Negative (Negative); Blood,Urine Negative (Negative); Color,Urine Colorless; Glucose,Urine (UA) Negative (Negative); Ketones,Urine Negative (Negative); Leukocyte Esterase,Urine Negative (Negative); Nitrite,Urine Negative (Negative); Protein,Urine Negative (Negative); Specific Gravity,Urine 1.011 (1.001-1.035); Urobilinogen,Urine <2.0 mg/dL (<2.0)
[2024-03-13 15:47] LABS: Basophils # (A) 0.05 X 10*3/uL (0.00-0.10); Basophils % (A) 0.7 %; Eosinophils # (A) 0.15 X 10*3/uL (0.04-0.35); Eosinophils % (A) 2.1 %; HCT 45.8 % (37.2-46.3); HGB 15.2 g/dL (12.0-15.0); Lymphocytes # (A) 1.62 X 10*3/uL (0.90-5.00); Lymphocytes % (A) 22.5 %; MCH 29.3 pg (27.0-32.0); MCHC 33.2 g/dL (32.0-37.0); MCV 88.4 FL (80.0-97.0); Mean Platelet Volume 10.1 FL (9.5-12.2); Monocytes # (A) 0.49 X 10*3/uL (0.20-1.00); Monocytes % (A) 6.8 %; NRBC Per 100 WBC 0 X 10*3/uL (0.00-0.01); Neutrophils # (A) 4.84 X 10*3/uL (1.80-7.70); Neutrophils % (A) 67.3 %; Platelet Count 212 X 10*3/uL (140-440); RBC 5.18 X 10*6/uL (4.10-5.20); RDW 12.4 % (11.5-14.5); WBC 7.19 X 10*3/uL (4.50-10.00)
[2024-03-13 15:56] LABS: BUN/Creat Ratio 19.33 Ratio (12.00-20.00); Blood Urea Nitrogen 17.4 mg/dL (9.0-27.0); Calcium 9.8 mg/dL (8.7-10.3); Carbon Dioxide 24.6 mmol/L (21.6-31.8); Chloride 102 mmol/L (96-109); Glucose 108 mg/dL (70-110); Sodium 138 mmol/L (135-145)
== END | disposition home or self-care (01) ==
LOC: LABPAT 10:21
PROVIDERS: ATTEND Urology
DX: Z01.818 Encounter for other preprocedural examination (principal); C67.9 Malignant neoplasm of bladder, unspecified
CPT/HCPCS: 80048; 81003; 85025; 87086

== ENCOUNTER → 2024-04-20 | Outpatient (CLI) | payer MEDICARE, OTHER ==
[2024-04-20 11:54] LABS: Appearance,Urine Clear (Clear); Bilirubin,Urine Negative (Negative); Blood,Urine Negative (Negative); Color,Urine Colorless; Glucose,Urine (UA) Negative (Negative); Ketones,Urine Negative (Negative); Leukocyte Esterase,Urine Small (Negative); Mucus,Urine Rare /hpf; Nitrite,Urine Negative (Negative); Protein,Urine Negative (Negative); RBC,Urine <1 /hpf (0-5); Specific Gravity,Urine 1.006 (1.001-1.035); Squamous Epithelial Cell,Urine 5 /hpf (0-4); Urobilinogen,Urine <2.0 mg/dL (<2.0); WBC,Urine 1 /hpf (0-5)
[2024-04-20 15:04] LABS: Basophils # (A) 0.04 X 10*3/uL (0.00-0.10); Basophils % (A) 0.7 %; Eosinophils # (A) 0.12 X 10*3/uL (0.04-0.35); Eosinophils % (A) 2.1 %; HCT 44.7 % (37.2-46.3); HGB 14.5 g/dL (12.0-15.0); Lymphocytes # (A) 1.55 X 10*3/uL (0.90-5.00); Lymphocytes % (A) 26.5 %; MCH 29.2 pg (27.0-32.0); MCHC 32.4 g/dL (32.0-37.0); MCV 89.9 FL (80.0-97.0); Mean Platelet Volume 10.5 FL (9.5-12.2); Monocytes # (A) 0.41 X 10*3/uL (0.20-1.00); NRBC Per 100 WBC 0 X 10*3/uL (0.00-0.01); Neutrophils % (A) 63.4 %; Platelet Count 191 X 10*3/uL (140-440); RBC 4.97 X 10*6/uL (4.10-5.20); RDW 12.7 % (11.5-14.5); WBC 5.84 X 10*3/uL (4.50-10.00)
[2024-04-20 15:21] LABS: Blood Urea Nitrogen 10.8 mg/dL (9.0-27.0); Calcium 10.1 mg/dL (8.7-10.3); Carbon Dioxide 26.3 mmol/L (21.6-31.8); Chloride 104 mmol/L (96-109); Glucose 103 mg/dL (70-110); Potassium 4.5 mmol/L (3.5-5.5); Sodium 141 mmol/L (135-145)
== END | disposition home or self-care (01) ==
LOC: LABPAT 10:52
PROVIDERS: ATTEND Urology
DX: Z01.818 Encounter for other preprocedural examination (principal); C67.9 Malignant neoplasm of bladder, unspecified
CPT/HCPCS: 36415; 80048; 81001; 85025; 87086; 93005

== ENCOUNTER 2024-04-26 07:15 | Day surgery (SDC) | payer MEDICARE, OTHER ==
[2024-04-19 13:55] VITALS: BMI 26.6
--- NOTE | 2024-04-25 14:41 | P.GSHP ---
History of Present Illness H&P Date: 04/25/24 8-year-old female with a history of superficial bladder cancer dating to 2021. She has had BCG therapy as well as gemcitabine therapy. These are low-grade superficial tumors. She recently had cystoscopy identified superficial right anterior wall recurrence. For this reason she comes for transurethral resection of these bladder tumor. Past Medical History Past Medical History: Cancer, Eye Disorder, GERD/Reflux, Hypertension, Skin Disorder Additional Past Medical History / Comment(s): Bladder cancer 2021. Seasonal allergies. Osteopenia. Ocular hypertension. Rosacea. PAST [employer] PERSONALITY HISTORY: She has no history of STDs. History of Any Multi-Drug Resistant Organisms: None Reported Past Surgical History: Tubal Ligation Additional Past Surgical History / Comment(s): Transurethral resection of bladder tumor x2, D&C, colonoscopy, upper endoscopy, Past Anesthesia/Blood Transfusion Reactions: No Reported Reaction, Motion Sickness, Postoperative Nausea & Vomiting (PONV) Additional Past Anesthesia/Blood Transfusion Reaction / Comment(s): Pt adopted, family hx unknown. no hx blood transfusion Smoking Status: Never smoker - Past Family History Mother History Unknown: Yes Family Medical History: Unable to Obtain Additional Family Medical History / Comment(s): Family history unknown, patient adopted. Medications and Allergies Home Medications Medication Instructions Recorded Confirmed Type lisinopriL [Zestril] 10 mg PO BID 09/07/14 04/19/24 History Montelukast [Singulair] 10 mg PO HS 03/20/20 04/19/24 History Omeprazole [PriLOSEC] 20 mg PO AC-SUPPER 03/20/20 04/19/24 History Hydrocortisone Cream 1 applic TOPICAL HS PRN 01/20/22 04/19/24 History [Hydrocortisone 2.5% Cream] Latanoprost/Pf [Latanoprost 0.005% 1 drop BOTH EYES HS 01/20/22 04/19/24 History Eye Drop] metroNIDAZOLE 0.75% CREAM 1 applic TOPICAL DAILY PRN 01/20/22 04/19/24 History [Metrocream 0.75%] Cetirizine HCl [Zyrtec] 10 mg PO BID 04/03/22 04/19/24 History Acetaminophen Tab [Tylenol] 1,000 mg PO Q6HR PRN tab 07/22/23 01/08/25 Rx Fluticasone Nasal [place] [Flonase 1 spray NASAL BID PRN 03/20/24 04/19/24 History Nasal [place]] Docusate Sodium 100 mg PO DAILY PRN 04/19/24 04/19/24 History diphenhydrAMINE [Benadryl] 50 mg PO HS PRN 04/19/24 04/19/24 History Allergies Allergy/AdvReac Type Severity Reaction Status Date / Time No Known Allergies Allergy Verified 04/19/24 11:09 Surgical - Exam - General well developed, well nourished, no distress - Eyes normal ocular movement, no icteric - ENT no hearing loss, no congestion - Neck no masses, trachea midline - Respiratory normal respiratory effort, clear to auscultation - Abdomen Abdomen: soft, non tender, no guarding, no rigid, no rebound - Integumentary no rash, no abnormal pigmentation - Neurologic no disoriented, no combative - Psychiatric oriented to time, oriented to person, oriented to place, speech is normal, memory intact Assessment and Plan Assessment: Impression: Recurrent bladder cancer Recommendations transurethral resection of this bladder cancer[medium, 2cm]
[~2024-04-26 07:15] MED LIST changes: +LIDOCAINE 1% (10MG/ML) FOR IV START INTRADERMA PRN; +METOCLOPRAMIDE 5 MG/ML 2 ML VIAL IVP PRN; -Pre Op ABX Message 1 EACH MISC MISCELLANE ONE
[2024-04-26] MEDS: IV FLUID CONTINUATION 1,000 ML IV ONE ×2 (07:45→11:01)
[2024-04-26] MEDS: LACTATED RINGERS 1,000 ML IV SCH (08:05)
[2024-04-26] MEDS: ONDANSETRON 4 MG/2 ML VIAL IVP ONE (08:05)
[2024-04-26] MEDS: DEXAMETHASONE SOD PHOSPHATE 4 MG/ML 1 ML VIAL IV ONE (08:07)
[2024-04-26] MEDS ORDERED: SUCCINYLCHOLINE CHLORIDE 200 MG/10 ML VIAL IV ONE (08:20)
[2024-04-26] MEDS ORDERED: fentaNYL (PF) 50 MCG/ML 2 ML AMP ONE (08:20)
[2024-04-26] MEDS ORDERED: PROPOFOL 10 MG/ML 20 ML VIAL IV ONE (08:20)
[2024-04-26] MEDS ORDERED: MIDAZOLAM 2 MG/2 ML VIAL ONE (08:20)
[2024-04-26] MEDS ORDERED: diphenhydrAMINE 50 MG/ML 1 ML VIAL ONE (08:20)
--- NOTE | 2024-04-26 09:17 | P.OP ---
Date of Procedure: 04/26/24 Preoperative Diagnosis: Recurrent superficial bladder cancer Postoperative Diagnosis: Same Procedure(s) Performed: Cystoscopy transurethral resection of recurrent tumor, small less than 2 cm Anesthesia: JOSELINE Surgeon: Antony Peters Estimated Blood Loss (ml): 0 Pathology: other (Tumor and biopsies) Disposition: PACU Indications for Procedure: Patient is 78. She has a history of low-grade superficial TA bladder tumors. She had a follow-up cystoscopy recently identifying several small tumors in the anterior bladder wall she comes for resection Description of Procedure: Patient brought to the operative suite. Given general anesthesia. Placed in lithotomy position sterile prep and drape. Under direct vision the resectoscope and Foroblique lens was introduced into the bladder. I resect the multiple small tumors in the right anterior bladder wall. I then some biopsies of erythematous bladder wall. The patient has a classic female thin bladder so a Luke catheter is placed. Bleeding is controlled with electrocautery. And a 16 [place] Luke catheter was introduced in the bladder with clear urine return. The patient is awakened returned recovery in good condition. Pending biopsies is further recommendations.
[2024-04-26] MEDS: HYDROmorphone 0.5 MG/0.5 ML SYRINGE IVP PRN (09:25)
[2024-04-26] MEDS ORDERED: DOCUSATE 100 MG CAP PO PRN (12:02)
[2024-04-26] MEDS ORDERED: FLUTICASONE NASAL 50MCG/SPRAY 16GM BTL NASAL PRN (12:02)
[2024-04-26] MEDS ORDERED: Acetaminophen-Codeine 300-30mg TAB PO PRN (12:03)
[2024-04-26] MEDS ORDERED: MORPHINE SULFATE 2 MG/ML SYRINGE IV PRN (12:03)
[2024-04-26] MEDS ORDERED: HYDROcodone/APAP 5-325MG 1 EACH TAB PO PRN (12:03)
[2024-04-26] MEDS ORDERED: ONDANSETRON 4 MG/2 ML VIAL IVP PRN (12:05)
[2024-04-26] MEDS: Pre Op ABX Message 1 EACH MISC MISCELLANE ONE (14:04)
[2024-04-26] MEDS: DEXTROSE 5%-0.45% NACL 1,000 ML IV SCH (14:04)
[2024-04-26] MEDS: PANTOPRAZOLE 40 MG TABLET PO SCH (16:01)
[2024-04-26] MEDS: LATANOPROST 0.005% OPHTH DROPS 2.5 ML BTL BOTH EYES SCH (20:25)
[2024-04-26] MEDS: diphenhydrAMINE 25 MG CAP PO PRN (20:25)
[2024-04-26] MEDS: lisinopriL 10 MG TAB PO SCH (20:25)
[2024-04-26] MEDS: LORATADINE 10 MG TAB PO SCH (20:25)
[2024-04-26] MEDS: MONTELUKAST 10 MG TAB PO SCH (20:25)
[2024-04-27 03:34] VITALS: TEMP 97.8
[2024-04-27 08:17] VITALS: BP 115/64; PULSE 69; RESP 16
--- NOTE | 2024-04-27 12:16 | P.DS ---
Providers Attending physician: Antony Peters Primary care physician: [facility] Course: This is a 78-year-old female history of bladder cancer. Underwent a TURBT by Dr. Tinajero on April 26. Please see op note dated Apr 26 for surgery details. Patient had intractable nausea and vomiting post surgery thus she was admitted. This improved on postop day #1. She was discharged home on postop day #1 with a Turpin catheter. At time of discharge she was tolerating a diet, ambulating, pain was controlled Plan - Discharge Summary Discharge Rx Participant: No New Discharge Prescriptions: No Action lisinopriL [Zestril] 10 mg PO BID Omeprazole [PriLOSEC] 20 mg PO AC-SUPPER Montelukast [Singulair] 10 mg PO HS metroNIDAZOLE 0.75% CREAM [Metrocream 0.75%] 1 applic TOPICAL DAILY PRN PRN Reason: rosacea Hydrocortisone Cream [Hydrocortisone 2.5% Cream] 1 applic TOPICAL HS PRN PRN Reason: rosacea Cetirizine HCl [Zyrtec] 10 mg PO BID Acetaminophen Tab [Tylenol] 1,000 mg PO Q6HR PRN tab PRN Reason: Fever and/ or Mild Pain Latanoprost/Pf [Latanoprost 0.005% Eye Drop] 1 drop BOTH EYES HS Fluticasone Nasal [place] [Flonase Nasal [place]] 1 spray NASAL BID PRN PRN Reason: Congestion diphenhydrAMINE [Benadryl] 50 mg PO HS PRN PRN Reason: sleep Docusate Sodium 100 mg PO DAILY PRN PRN Reason: Constipation Discharge Medication List lisinopriL [Zestril] 10 mg PO BID 09/07/14 [History] Montelukast [Singulair] 10 mg PO HS 03/20/20 [History] Omeprazole [PriLOSEC] 20 mg PO AC-SUPPER 03/20/20 [History] Hydrocortisone Cream [Hydrocortisone 2.5% Cream] 1 applic TOPICAL HS PRN 01/20/22 [History] Latanoprost/Pf [Latanoprost 0.005% Eye Drop] 1 drop BOTH EYES HS 01/20/22 [History] metroNIDAZOLE 0.75% CREAM [Metrocream 0.75%] 1 applic TOPICAL DAILY PRN 01/20/22 [History] Cetirizine HCl [Zyrtec] 10 mg PO BID 04/03/22 [History] Acetaminophen Tab [Tylenol] 1,000 mg PO Q6HR PRN tab 10/31/22 [Rx] Fluticasone Nasal [place] [Flonase Nasal [place]] 1 spray NASAL BID PRN 03/20/24 [History] Docusate Sodium 100 mg PO DAILY PRN 04/19/24 [History] diphenhydrAMINE [Benadryl] 50 mg PO HS PRN 04/19/24 [History] Follow up Appointment(s)/Referral(s): Antony Peters MD [STAFF PHYSICIAN] - 1 Week (CHECK TO SEE YOUR APPOINTMENT DATE/TIME ON YOUR CALENDER AND CALL IF YOU DO NOT HAVE ONE.) Patient Instructions/Handouts: *Surgery [facility] - (Anesthesia) Discharge Instructions Outpatient Surgery, Turpin Catheter Placement and Care (GEN), Transurethral Resection of Bladder Tumors (DC), How to Change a Catheter Drainage Bag (DC) Activity/Diet/Wound Care/Special Instructions: home with turpin
== END 2024-04-27 14:01 | disposition home or self-care (01) ==
LOC: OR 07:15 → 4SSUR 12:15 → OR 04-27 14:01
PROVIDERS: ATTEND Urology
DX: C67.9 Malignant neoplasm of bladder, unspecified (principal); K21.9 Gastro-esophageal reflux disease without esophagitis; I10 Essential (primary) hypertension; M85.80 Other specified disorders of bone density and structure, unspecified site; J30.2 Other seasonal allergic rhinitis; H40.059 Ocular hypertension, unspecified eye; L71.9 Rosacea, unspecified; Z85.51 Personal history of malignant neoplasm of bladder; Z79.899 Other long term (current) drug therapy; Z98.51 Tubal ligation status
CPT/HCPCS: 52234; 88307; J2250; J0330; J1200; J1100; J2405; J3010; J2704; J1171